=== PATIENT | female | born 1935 | race Caucasian/White ===

== ENCOUNTER 2020-02-26 15:18 | Observation (INO) | payer OTHER, BC ==
--- NOTE | 2020-02-26 15:21 | PDOC ---
History of Present Illness - General Chief Complaint: Head/Neck problem Stated Complaint: HIT HER HEAD ON a wall no loc - History of Present Illness Initial Comments: The pt is a 84F w/ a history of HTN and anxiety who presents for evaluation after a fall. The pt reports getting into an argument with her and then having an IBS flair. Afterwards the pt felt lightheaded for a short period. She then 'sat' on the floor but hit her head on the corner of the wall. She denies LOC. She denies chest pain before/after the event. The pt reports L parietal pain that is constant, achy, non-radiating, and not exacerbated or alleviated by anything she can identify. 02/26/20 15:48 Past History - Medical History Allergies/Adverse Reactions: Allergies Allergy/AdvReac Type Severity Reaction Status Date / Time Sulfa (Sulfonamide Allergy Intermediate Rash Verified 02/26/20 15:22 Antibiotics) garlic AdvReac Intermediate Nausea Verified 02/26/20 15:21 Home Medications: Ambulatory Orders Alprazolam [Xanax] 0.25 mg PO PRN 02/10/15 Losartan 50Mg/Hctz 12.5MG [Hyzaar -] 1 tab PO DAILY 02/10/15 Verapamil HCl [Verapamil ER] 240 mg PO DAILY 02/10/15 Amlodipine Besylate 5 mg PO DAILY 02/26/20 Simvastatin 10 mg PO DAILY 02/26/20 Verapamil HCl [Verapamil ER] 120 mg PO HS 02/26/20 - Psycho-Social/Smoking History Smoking History: Never smoked Review of Systems - Review of Systems Able to Perform ROS?: Yes Comments:: GENERAL/CONSTITUTIONAL: No fever or chills. No weakness HEAD, EYES, EARS, NOSE AND THROAT: No change in vision. No change in hearing. No sore throat CARDIOVASCULAR: No chest pain or shortness of breath RESPIRATORY: Denies cough, hemoptysis GASTROINTESTINAL: No nausea, vomiting, diarrhea or constipation GENITOURINARY: No dysuria, frequency, or change in urination MUSCULOSKELETAL: No joint or muscle swelling or pain. No back pain SKIN: No rash NEUROLOGIC: No headache, vertigo, loss of consciousness, or change in strength/sensation ENDOCRINE: No increased thirst. No abnormal weight change HEMATOLOGIC/LYMPHATIC: No anemia, easy bleeding, or history of blood clots ALLERGIC/IMMUNOLOGIC: No hives or skin allergy 02/26/20 15:21 Is the patient limited [place] proficient: No *Physical Exam - Vital Signs Initial Vital Signs Temp Pulse Resp BP Pulse Ox 97.7 F 86 16 130/70 98 02/26/20 15:20 02/26/20 15:20 02/26/20 15:20 02/26/20 15:20 02/26/20 15:20 02/26/20 16:56 - Physical Exam GENERAL: Awake, alert, and oriented to person/place/time, in no acute distress HEAD: 2cm linear parietal scalp laceration w/o active hemorrhage EYES: PERRLA, EOMI, sclera anicteric, conjunctiva clear ENT: Hearing grossly normal, nares patent, oropharynx clear without exudates. Moist mucosa LUNGS: No distress, speaks in full sentences, clear to auscultation bilaterally HEART: Regular rate and rhythm, normal S1 and S2, no murmurs appreciated, peripheral pulses normal and equal bilaterally ABDOMEN: Soft, nontender, normoactive bowel sounds. No guarding, no rebound EXTREMITIES: Normal inspection, Normal range of motion, no edema. No clubbing or cyanosis NEUROLOGICAL: Cranial nerves II through XII grossly intact. Normal speech, normal gait, no focal sensorimotor deficits SKIN: Warm, Dry 02/26/20 15:21 Procedures - Laceration/Wound Repair Left Posterior Parietal Wound Length: to 2.5 cm Wound Explored: clean Wound's Depth, Shape: superficial, linear Irrigated w/ Saline: Yes Anesthesia: 1% Lidocaine Amount of Anesthetic (ccs): 3 Wound Repaired With: [place] (2) Sterile Dressing Applied: Yes ED Treatment Course - LABORATORY CBC & Chemistry Diagram: 02/26/20 15:05 02/27/20 08:12 Medical Decision Making - Medical Decision Making The pt is a 84F w/ a history of HTN and anxiety who presents for evaluation after a fall likely 2/2 pre-syncope ED Course CMP, CBC, Trop I ECG CXR CT head Laceration repaired per procedure note CT head w/o acute pathology Trop I neg No anemia No leukocytosis 02/26/20 16:47 ECG w/ sinus rhythm w/ 1st degree AV block; WI 214; QTc 469; no axis deviation; on acute ischemic changes CXR w/o acute pathology Plan for admission for tele obs for pre-syncope Pt signed out to [facility] Admitting 02/26/20 18:59 Discharge - Discharge Information Problems reviewed: Yes Clinical Impression/Diagnosis: Pre-syncope Laceration of head Qualifiers: Encounter type: initial encounter Location of open wound of head: scalp Foreign body presence: without foreign body Qualified Code(s): S01.01XA - Laceration without foreign body of scalp, initial encounter Condition: Stable - Follow up/Referral - Patient Discharge Instructions - Post Discharge Activity
[2020-02-26 15:35] VITALS: BMI 17.7
--- NOTE | 2020-02-26 15:36 | PDOC ---
Attending Attestation - Resident Resident Name: Francisco J Paez - ED Attending Attestation I have performed the following: I have examined & evaluated the patient, The case was reviewed & discussed with the resident, I agree w/resident's findings & plan, Exceptions are as noted - HPI HPI: 02/26/20 15:33 84y F hx of htn, ibs, anxiety presents sp fall. Pt felt like having a BM, then felt lightheaded, alittle sweaty, and sat down, then she tried to lay down and struck herhead against a door jam. she denies true loc, her witnessed the episode and statee it looks like her legs gave out. The pt denie sany headache, double vision, speech difficulty focal numbness/tiomgling/weakness, sob, cp, palpitations, abd pain, back pain, f/c, coughng, leg swelling, diarhea, blood in the stool/melena. - Physicial Exam PE: 02/26/20 17:54 GENERAL: The patient is awake, alert, and fully oriented, Nontoxic - in no acute distress. HEAD: Normocephalic, 2cm laceration on parietal scalp without active bleedingm, no crepitus/stepoffs EYES: extraocular movements intact, sclera anicteric, conjunctiva clear. ENT: Normal voice, Moist mucous membranes. BACK: No focal bony tenderness in cervical/thoracic/lumbar spine. NECK: Normal range of motion, supple LUNGS: Breath sounds equal, clear to auscultation bilaterally. No wheezes, no rhonchi, no rales. HEART: Regular rate and rhythm, normal S1 and S2 without murmur, rub or gallop. ABDOMEN: Soft, nontender, No guarding, no rebound. No CVA tenderness EXTREMITIES: Normal range of motion, no edema. NEUROLOGICAL: No facial assymetry, Normal speech, PSYCH: Normal mood, normal affect. SKIN: Warm, Dry, normal turgor, - Medical Decision Making 02/26/20 17:55 Differential for the patient's presyncope includes but not limited to vasovagal episode, pulmonary embolism, subarachnoid hemorrhage, arrythmia, AAA/dissection. Based on the patient's lack of chest pain, shortness of breath, doubt pulmonary embolism. Lack of severe headache doubt subarachnoid hemorrhage. Lack of abdominal pain and pulsatile abdominal mass/neurologic symptoms doubt AAA/dissection. will check cbc to r/o anemia cmp to r/o electrolyte imbalance trop to r/o acs ekg to r/o arrhythmia cxr to r/o acute pulmonary disease laceration closed with [address] head negative for fx labs reveiwed with out signs of anemia, metabolic derangement ekg shwos 1st degree av block, no signs of arrhythmia Heart Score/ECG Review - ECG Impressions Comment:: 02/26/20 18:29 Twelve-lead EKG was performed and reviewed by me. There is normal sinus rhythm with a normal rate. rate of 75 The axis is normal. 1st degree av block abnromal r wave progression Discharge - Discharge Information Problems reviewed: Yes Clinical Impression/Diagnosis: Pre-syncope Laceration of head Qualifiers: Encounter type: initial encounter Location of open wound of head: scalp Foreign body presence: without foreign body Qualified Code(s): S01.01XA - Laceration without foreign body of scalp, initial encounter Condition: Stable Disposition: HOME - Follow up/Referral - Patient Discharge Instructions - Post Discharge Activity
[2020-02-26 16:17] LABS: BASO % 0.4 % (0-2.0); EOS % 0.5 % (0-4.5); HEMATOCRIT 35.7 % (32.4-45.2); HEMOGLOBIN 11.7 GM/dl (10.7-15.3); LYMPH % 8.4 % (8-40); MCH 29.5 pg (25.7-33.7); MCHC 32.7 g/dl (32.0-36.0); MEAN CELL VOLUME 90.3 fl (80-96); MEAN PLT VOLUME 7.2 fl (7.5-11.1); MONO % 5.2 % (3.8-10.2); NEUT % 85.5 % (42.8-82.8); PLATELET COUNT 203 K/MM3 (134-434); RBC 3.96 M/mm3 (3.60-5.2); RDW 12.1 % (11.6-15.6); WHITE BLOOD COUNT 10.5 K/mm3 (4.0-10.8)
[2020-02-26 16:53] LABS: ALBUMIN 4.5 g/dl (3.4-5.0); BILIRUBIN,TOTAL 0.4 mg/dl (0.2-1); CALCIUM 9.2 mg/dl (8.5-10); CREATININE 0.9 mg/dl (0.55-1.3); TOT PROT 7.2 g/dl (6.4-8.2)
--- NOTE | 2020-02-26 19:26 | HP ---
CHIEF COMPLAINT: Near syncope, s/p fall PCP: [facility] HISTORY OF PRESENT ILLNESS: This is a 84 y/o female with a PMHx of HTN, IBS, Anxiety. who presents to the ED s/p fall. Patient reports feeling like she needed to have a BM, then became lightheaded, diaphoretic. She reports sitting down, then she tried to lay down and struck her head against a door jam. She denies LOC. Per ED records: her witnessed the episode and stated it looks like her legs gave out. The patient denies headache, double vision, slurred speech, focal numbness/tingling/weakness. Denies fever, chills, cough, SOB, CP, palpitations, back pain, AP, diarrhea, constipation, melena, hematochezia, dysuria. She denies sick contacts or travel. ER course was notable for: (1) Head CT- no CT evidence of acute intracranial pathology (2) Chest Xray- there is old right rib trauma and old fx of right clavicle with AC separation. apical pleural thickening R>L. no infiltrate or failure (3) Troponin- 0.03 Recent Travel: None PAST MEDICAL HISTORY: See HPI PAST SURGICAL HISTORY: Unknown Social History: Smoking: Never Alcohol: Occasional Drugs: Denies Resides with spouse, independent Allergies Sulfa (Sulfonamide Antibiotics) Allergy (Intermediate, Verified 02/26/20 15:22) Rash garlic Adverse Reaction (Intermediate, Verified 02/26/20 15:21) Nausea HOME MEDICATIONS: Home Medications Medication Instructions Recorded Alprazolam [Xanax] 0.25 mg PO PRN 02/10/15 Losartan 50Mg/Hctz 12.5MG [Hyzaar 1 tab PO DAILY 02/10/15 -] Verapamil HCl [Verapamil ER] 240 mg PO DAILY 02/10/15 Amlodipine Besylate 5 mg PO DAILY 02/26/20 Simvastatin 10 mg PO DAILY 02/26/20 Verapamil HCl [Verapamil ER] 120 mg PO HS 02/26/20 REVIEW OF SYSTEMS CONSTITUTIONAL: diaphoresis Absent: fever, chills, generalized weakness, malaise, loss of appetite, weight change HEENT: Absent: rhinorrhea, nasal congestion, throat pain, throat swelling, difficulty swallowing, mouth swelling, ear pain, eye pain, visual changes CARDIOVASCULAR: near syncope, lightheadedness Absent: chest pain, palpitations, irregular heart rate, peripheral edema RESPIRATORY: Absent: cough, shortness of breath, dyspnea with exertion, orthopnea, wheezing, stridor, hemoptysis GASTROINTESTINAL: Absent: abdominal pain, abdominal distension, nausea, vomiting, diarrhea, constipation, melena, hematochezia GENITOURINARY: Absent: dysuria, frequency, urgency, hesitancy, hematuria, flank pain, genital pain MUSCULOSKELETAL: Absent: myalgia, arthralgia, joint swelling, back pain, neck pain SKIN: laceration to left side of scalp Absent: rash, itching, pallor HEMATOLOGIC/IMMUNOLOGIC: Absent: easy bleeding, easy bruising, lymphadenopathy, frequent infections ENDOCRINE: Absent: unexplained weight gain, unexplained weight loss, heat intolerance, cold intolerance NEUROLOGIC: dizziness, unsteady gait Absent: headache, focal weakness or paresthesias, seizure, mental status changes, bladder or bowel incontinence PSYCHIATRIC: anxiety Absent: depression, suicidal or homicidal ideation, hallucinations. PHYSICAL EXAMINATION Vital Signs - 24 hr 02/26/20 02/26/20 15:20 18:53 Temperature 97.7 F Pulse Rate 86 Pulse Rate [ 74 Right Radial] Respiratory 16 Rate Blood Pressure 130/70 Blood Pressure 132/68 [Left Arm] O2 Sat by Pulse 98 96 Oximetry (%) GENERAL: Awake, alert, and fully oriented, in no acute distress. HEAD: Normal with no signs of trauma. EYES: Pupils equal, round and reactive to light, extraocular movements intact, sclera anicteric, conjunctiva clear. No lid lag. EARS, NOSE, THROAT: Ears normal, nares patent, oropharynx clear without exudates. Moist mucous membranes. NECK: Normal range of motion, supple without lymphadenopathy, JVD, or masses. LUNGS: Breath sounds equal, clear to auscultation bilaterally. No wheezes, and no crackles. No accessory muscle use. HEART: Regular rate and rhythm, normal S1 and S2 without murmur, rub or gallop. ABDOMEN: Soft, nontender, not distended, normoactive bowel sounds, no guarding, no rebound, no masses. No hepatomegaly or splenomegaly. MUSCULOSKELETAL: Normal range of motion at all joints. No bony deformities or tenderness. No CVA tenderness. UPPER EXTREMITIES: 2+ pulses, warm, well-perfused. No cyanosis. No clubbing. No peripheral edema. LOWER EXTREMITIES: 2+ pulses, warm, well-perfused. No calf tenderness. No peripheral edema. NEUROLOGICAL: Antalgic gait. Cranial nerves II-XII intact. Normal speech. PSYCHIATRIC: Anxious, cooperative. Good eye contact. Appropriate mood and affect. SKIN: Brock to L- parietal scalp intact. Warm, dry, normal turgor, no rashes noted, normal capillary refill. Laboratory Results - last 24 hr 02/26/20 02/26/20 02/26/20 15:05 16:05 16:05 WBC 10.5 RBC 3.96 Hgb 11.7 Hct 35.7 MCV 90.3 MCH 29.5 MCHC 32.7 RDW 12.1 Plt Count 203 MPV 7.2 L Absolute Neuts (auto) 9.0 Neutrophils % 85.5 H Lymphocytes % 8.4 Monocytes % 5.2 Eosinophils % 0.5 Basophils % 0.4 Sodium 136 Potassium 4.0 Chloride 100 Carbon Dioxide 23 Anion Gap 13 BUN 23.0 H Creatinine 0.9 Est GFR (CKD-EPI)AfAm 68.53 Est GFR (CKD-EPI)NonAf 59.13 Random Glucose 122 H Calcium 9.2 Total Bilirubin 0.4 AST 21 ALT 17 Alkaline Phosphatase 71 D Troponin I < 0.03 Total Protein 7.2 Albumin 4.5 ASSESSMENT/PLAN: This is a 84 y/o female placed in Telemetry Observation for Near Syncope for further evaluation of their emergent condition. Plan: See Problem List FEN PO fluids as tolerated Replete lytes prn Low Na Diet DVT ppx OOB SCDs Consider AC if LOS > 48 hrs Dispo: Observation Family Medical History Family History: Unremarkable Problem List - Problem (1) Pre-syncope Assessment/Plan: Likely secondary to Vasovagal vs arrhythmia Continue cardiac monitoring Serial Enzymes neg x1, will trend EKG reviewed Carotid Doppler-pending Appreciate Cardiology consult Monitor CBC, CMP Fall Precautions Neurochecks Orthostatics Code(s): R55 - SYNCOPE AND COLLAPSE (2) HTN (hypertension) Assessment/Plan: stable Monitor BP Continue home medication Monitor renal function Code(s): I10 - ESSENTIAL (PRIMARY) HYPERTENSION Qualifiers: Hypertension type: essential hypertension Qualified Code(s): I10 - Essential (primary) hypertension (3) Laceration of head Assessment/Plan: stapled in ED Wound Care TD ordered Code(s): S01.91XA - LACERATION W/O FOREIGN BODY OF UNSP PART OF HEAD, INIT Qualifiers: Encounter type: initial encounter Location of open wound of head: scalp Foreign body presence: without foreign body Qualified Code(s): S01.01XA - Laceration without foreign body of scalp, initial encounter (4) Anxiety Assessment/Plan: Continue Xanax prn use judiciously secondary to near syncopal event Code(s): F41.9 - ANXIETY DISORDER, UNSPECIFIED (5) Encounter for screening laboratory testing for COVID-19 virus Assessment/Plan: Low Risk Covid PCR-pending Isolation Precautions Code(s): Z11.59 - ENCOUNTER FOR SCREENING FOR OTHER VIRAL DISEASES Visit type - Medication Review Med list reviewed for High Risk Meds patients 65 and older: Yes - Emergency Visit Emergency Visit: Yes ED Registration Date: 02/26/20 Care time: The patient presented to the Emergency Department on the above date and was hospitalized for further evaluation of their emergent condition. - New Patient This patient is new to me today: Yes Date on this admission: 02/26/20 - Critical Care Critical Care patient: No
[2020-02-26] MEDS ORDERED: ALPRAZolam 0.25 MG TABLET PO ONE (23:28)
[2020-02-26] MEDS ORDERED: ATORVASTATIN CA 10 MG TABLET (FP) PO SCH (23:30)
[2020-02-27] MEDS ORDERED: DIPHTH,PERTUSS(ACELL),TET 0.5 ML DISP.SYRIN IM ONE (08:00)
[2020-02-27 08:59] LABS: ALBUMIN 4.4 g/dl (3.4-5.0); BILIRUBIN,TOTAL 0.7 mg/dl (0.2-1); CALCIUM 9.6 mg/dl (8.5-10); CREATININE 0.6 mg/dl (0.55-1.3); MAGNESIUM 2.1 mg/dL (1.8-2.4); PHOSPHOROUS 3.1 mg/dl (2.5-4.9); POTASSIUM 3.9 mmol/L (3.5-5.1); TOT PROT 7.2 g/dl (6.4-8.2)
[2020-02-27 09:03] LABS: BASO % 0.7 % (0-2.0); EOS % 1.4 % (0-4.5); HEMATOCRIT 39.8 % (32.4-45.2); HEMOGLOBIN 12.7 GM/dl (10.7-15.3); LYMPH % 17.5 % (8-40); MCHC 31.8 g/dl (32.0-36.0); MEAN CELL VOLUME 91.4 fl (80-96); MEAN PLT VOLUME 7.8 fl (7.5-11.1); MONO % 7.4 % (3.8-10.2); PLATELET COUNT 222 K/MM3 (134-434); RBC 4.36 M/mm3 (3.60-5.2); RDW 11.7 % (11.6-15.6); WHITE BLOOD COUNT 5.4 K/mm3 (4.0-10.8)
[2020-02-27] MEDS ORDERED: VERAPAMIL HCL 120 MG E.R. TABLET PO SCH (10:00)
[2020-02-27] MEDS ORDERED: amLODIPine BESYLATE 5 MG TABLET (FP) PO SCH (10:00)
[2020-02-27 10:33] VITALS: BP 120/65; PULSE 84; TEMP 98.3
--- NOTE | 2020-02-27 10:46 | EKG ---
Test Reason : Blood Pressure : / mmHG Vent. Rate : 075 BPM Atrial Rate : 075 BPM P-R Int : 214 ms QRS Dur : 066 ms QT Int : 420 ms P-R-T Axes : 080 046 018 degrees QTc Int : 469 ms SINUS RHYTHM WITH 1ST DEGREE A-V BLOCK MINIMAL VOLTAGE CRITERIA FOR LVH, MAY BE NORMAL VARIANT SEPTAL INFARCT , AGE UNDETERMINED ABNORMAL ECG NO PREVIOUS ECGS AVAILABLE Confirmed by Caleb Ness ([id number]) on 02/27/2020 10:46:09 AM Referred By: Confirmed By:Caleb Ness
[2020-02-27] MEDS ORDERED: ALPRAZolam 0.25 MG TABLET PO ONE (11:30)
--- NOTE | 2020-02-27 13:33 | CON.CARD ---
Consult Consult Specialty:: Cardiology Referred by:: Hospitalist Medicine Reason for Consultation:: Near syncope post fall - History of Present Illness Chief Complaint: Near syncope History of Present Illness: This is a 84 y/o female with a PMHx of HTN, IBS, Anxiety presented to the ED s/p fall. Patient reports feeling like she needed to have a BM, with tenesmus then became lightheaded, diaphoretic w/o true syncope. She reports sitting down, then she tried to lay down and struck her head against a door jam. She denies LOC. Pe r ED records: her witnessed the episode and stated it looks like her legs gave out. The patient denies headache, double vision, slurred speech, focal numbness/tingling/weakness. Denies fever, chills, cough, SOB, CP, palpitations, back pain, AP, diarrhea, constipation, melena, hematochezia, dysuria. She denies sick contacts or travel. No events on telemetry, ruled out for [place] ER course was notable for: (1) Head CT- no CT evidence of acute intracranial pathology (2) Chest Xray- there is old right rib trauma and old fx of right clavicle with AC separation. apical pleural thickening R>L. no infiltrate or failure (3) Troponin- 0.03 - History Source History Provided By: Patient Limitations to Obtaining History: No Limitations - Alcohol/Substance Use Hx Alcohol Use: Yes - Smoking History Smoking history: Never smoked Have you smoked in the past 12 months: No If you are a former smoker, when did you quit?: 33 years ago Home Medications - Allergies Allergies/Adverse Reactions: Allergies Allergy/AdvReac Type Severity Reaction Status Date / Time Sulfa (Sulfonamide Allergy Intermediate Rash Verified 02/26/20 15:22 Antibiotics) garlic AdvReac Intermediate Nausea Verified 02/26/20 15:21 - Home Medications Home Medications: Ambulatory Orders Alprazolam [Xanax] 0.25 mg PO PRN 02/10/15 Losartan 50Mg/Hctz 12.5MG [Hyzaar -] 1 tab PO DAILY 02/10/15 Verapamil HCl [Verapamil ER] 240 mg PO DAILY 02/10/15 Amlodipine Besylate 5 mg PO DAILY 02/26/20 Simvastatin 10 mg PO DAILY 02/26/20 Verapamil HCl [Verapamil ER] 120 mg PO HS 02/26/20 Amlodipine Besylate [Norvasc -] 5 mg PO DAILY tablet 02/27/20 Atorvastatin Ca [Lipitor] 10 mg PO HS tablet 02/27/20 Verapamil HCl ER [Calan Sr -] 120 mg PO DAILY tablet.er 02/27/20 Review of Systems - Review of Systems Constitutional: reports: Diaphoresis Neurological: reports: Dizziness Vital Signs: Vital Signs Temperature 98.3 F 02/27/20 10:00 Pulse Rate 84 02/27/20 10:00 Respiratory Rate 18 02/27/20 10:00 Blood Pressure 120/65 02/27/20 10:00 O2 Sat by Pulse Oximetry (%) 98 02/27/20 10:00 Constitutional: Yes: No Distress, Calm Neck: Yes: Supple Respiratory: Yes: Regular, CTA Bilaterally Gastrointestinal: Yes: Normal Bowel Sounds, Soft Cardiovascular: Yes: Regular Rate and Rhythm JVD: No Carotid Bruit: No Heart Sounds: Yes: S1, S2 Murmur: Yes: Systolic Murmur, Grade 1 Edema: No - Other Data Labs, Other Data: CBC, BMP 02/27/20 08:12 02/27/20 08:12 Troponin, BNP 02/26/20 02/27/20 02/27/20 16:05 00:00 08:12 Troponin I < 0.03 < 0.02 < 0.03 Troponin, BNP 02/26/20 02/27/20 02/27/20 16:05 00:00 08:12 Troponin I < 0.03 < 0.02 < 0.03 NSR @ [address] 1[address] deg AVB min criteria LVH Ejection Fraction %: LVEF > or = 40 % Imaging - Results Chest X-ray: Report Reviewed (NAD) Cat Scan: Report Reviewed (HCT: NO acute changes) Problem List - Problems (1) Hyperlipidemia Code(s): E78.5 - HYPERLIPIDEMIA, UNSPECIFIED Qualifiers: Hyperlipidemia type: pure hypercholesterolemia Qualified Code(s): E78.00 - Pure hypercholesterolemia, unspecified; E78.0 - Pure hypercholesterolemia (2) Laceration of head Code(s): S01.91XA - LACERATION W/O FOREIGN BODY OF UNSP PART OF HEAD, INIT Qualifiers: Encounter type: initial encounter Location of open wound of head: scalp Foreign body presence: without foreign body Qualified Code(s): S01.01XA - Laceration without foreign body of scalp, initial encounter (3) Anxiety Code(s): F41.9 - ANXIETY DISORDER, UNSPECIFIED (4) HTN (hypertension) Code(s): I10 - ESSENTIAL (PRIMARY) HYPERTENSION Qualifiers: Hypertension type: essential hypertension Qualified Code(s): I10 - Essential (primary) hypertension (5) Pre-syncope Code(s): R55 - SYNCOPE AND COLLAPSE Assessment/Plan 1. Vasovagal near syncope with typical prodromal symptoms 2. HTN 3. Laceration of head post closure 4. Anxiety P:1. Ruled out got [place], no events on telemetry 2. Continue Hyzaar 50/12.5 qd, Norvasc 5 qd, Lipitor 10 qd 3. Wound care to head laceration 4. D/c with f/u with Dr. Drew Watkins at [facility] for outpatient stress and echo already scheduled 5. Thank you for consultative opportunity
--- NOTE | 2020-02-27 13:33 | DS ---
Physical Exam: SUBJECTIVE: Patient seen and examined. Offers no complaints. OBJECTIVE: Vital Signs Period Temp Pulse Resp BP Sys/Oneal Pulse Ox Last 24 Hr 97.4 F-98.3 F 71-97 16-18 111-142/65-77 94-98 PHYSICAL EXAM GENERAL: The patient is awake, alert, and fully oriented, in no acute distress. HEAD: 2 hoda in occipital scalp, clean and dry. EYES: PERRL, extraocular movements intact, sclera anicteric, conjunctiva clear. ENT: Ears normal, nares patent, oropharynx clear without exudates, moist mucous membranes. NECK: Trachea midline, full range of motion, supple. LUNGS: Breath sounds equal, clear to auscultation bilaterally, no wheezes, no crackles, no accessory muscle use. HEART: Regular rate and rhythm, S1, S2 without murmur, rub or gallop. ABDOMEN: Soft, nontender, nondistended, normoactive bowel sounds, no guarding, no rebound, no hepatosplenomegaly, no masses. EXTREMITIES: 2+ pulses, warm, well-perfused, no edema. NEUROLOGICAL: Cranial nerves II through XII grossly intact. Normal speech, gait not observed. PSYCH: Confrontational affect. SKIN: Warm, dry, normal turgor, no rashes or lesions noted. LABS Laboratory Results - last 24 hr 02/26/20 02/26/20 02/26/20 15:05 16:05 16:05 WBC 10.5 RBC 3.96 Hgb 11.7 Hct 35.7 MCV 90.3 MCH 29.5 MCHC 32.7 RDW 12.1 Plt Count 203 MPV 7.2 L Absolute Neuts (auto) 9.0 Neutrophils % 85.5 H Lymphocytes % 8.4 Monocytes % 5.2 Eosinophils % 0.5 Basophils % 0.4 Sodium 136 Potassium 4.0 Chloride 100 Carbon Dioxide 23 Anion Gap 13 BUN 23.0 H Creatinine 0.9 Est GFR (CKD-EPI)AfAm 68.53 Est GFR (CKD-EPI)NonAf 59.13 Random Glucose 122 H Calcium 9.2 Phosphorus Magnesium Total Bilirubin 0.4 AST 21 ALT 17 Alkaline Phosphatase 71 D Troponin I < 0.03 Total Protein 7.2 Albumin 4.5 Triglycerides Cholesterol Total LDL Cholesterol HDL Cholesterol Urine Color Urine Appearance Urine pH Urine Protein Urine Glucose (UA) Urine Ketones Urine Blood Urine Nitrite Urine Bilirubin Urine Urobilinogen Ur Leukocyte Esterase 02/26/20 02/27/20 02/27/20 22:10 00:00 08:12 WBC 5.4 RBC 4.36 Hgb 12.7 Hct 39.8 MCV 91.4 MCH 29.0 MCHC 31.8 L RDW 11.7 Plt Count 222 MPV 7.8 Absolute Neuts (auto) 4.0 Neutrophils % 73.0 Lymphocytes % 17.5 Monocytes % 7.4 Eosinophils % 1.4 Basophils % 0.7 Sodium Potassium Chloride Carbon Dioxide Anion Gap BUN Creatinine Est GFR (CKD-EPI)AfAm Est GFR (CKD-EPI)NonAf Random Glucose Calcium Phosphorus Magnesium Total Bilirubin AST ALT Alkaline Phosphatase Troponin I < 0.02 Total Protein Albumin Triglycerides Cholesterol Total LDL Cholesterol HDL Cholesterol Urine Color Yellow Urine Appearance Clear Urine pH 7.0 Urine Protein Negative Urine Glucose (UA) Negative Urine Ketones Negative Urine Blood Negative Urine Nitrite Negative Urine Bilirubin Negative Urine Urobilinogen 0.2 Ur Leukocyte Esterase Negative 02/27/20 02/27/20 08:12 08:12 WBC RBC Hgb Hct MCV MCH MCHC RDW Plt Count MPV Absolute Neuts (auto) Neutrophils % Lymphocytes % Monocytes % Eosinophils % Basophils % Sodium 140 Potassium 3.9 Chloride 103 Carbon Dioxide 27 Anion Gap 10 BUN 12.0 Creatinine 0.6 Est GFR (CKD-EPI)AfAm 97.69 Est GFR (CKD-EPI)NonAf 84.29 Random Glucose 98 Calcium 9.6 Phosphorus 3.1 Magnesium 2.1 Total Bilirubin 0.7 AST 19 ALT 17 Alkaline Phosphatase 74 Troponin I < 0.03 Total Protein 7.2 Albumin 4.4 Triglycerides 56 Cholesterol 193 Total LDL Cholesterol 91 HDL Cholesterol 91 H Urine Color Urine Appearance Urine pH Urine Protein Urine Glucose (UA) Urine Ketones Urine Blood Urine Nitrite Urine Bilirubin Urine Urobilinogen Ur Leukocyte Esterase HOSPITAL COURSE: This is a 84 y/o female with a PMHx of HTN, IBS, Anxiety. who presents to the ED s/p fall. Patient reports feeling like she needed to have a BM, then became lightheaded, diaphoretic. She reports sitting down, then she tried to lay down and struck her head against a door jam. She denies LOC. Per ED records: her witnessed the episode and stated it looks like her legs gave out. The patient denies headache, double vision, slurred speech, focal numbness/tingling/weakness. Denies fever, chills, cough, SOB, CP, palpitations, back pain, AP, diarrhea, constipation, melena, hematochezia, dysuria. She denies sick contacts or travel. Hospital course was notable for: EKG: Sinus rhythm with 1st degree AVB Head CT- no CT evidence of acute intracranial pathology Chest Xray- there is old right rib trauma and old fx of right clavicle with AC separation. apical pleural thickening R>L. no infiltrate or failure Troponins neg x 3 The patient was evaluated by cardiology consult - no additional inpatient interventions indicated. The patient states that she has an outpatient stress test and echo scheduled with Dr. Watkins at [facility]. Patient had carotid dopplers done here but there is a problem with uploading per radiology - instructed patient to follow up with Dr. Fu for results. Date of Admission:02/26/20 Date of Discharge: 02/27/20 Minutes to complete discharge: 35 Discharge Summary Problems reviewed: Yes Reason For Visit: PRE-SYNCOPE/ LACERATION OF HEAD Current Active Problems HTN (hypertension) (Acute) Laceration of head (Acute) Pre-syncope (Acute) Condition: Stable - Instructions Diet, Activity, Other Instructions: -Rest and stay well-hydrated -Continue all of your prescribed medications -Keep your hoda clean and dry - you can apply bacitracin ointment once daily -Return here next Wednesday to have your hoda taken out -Return to the ED sooner if you have chest pain, fainting episodes, redness or pain around your hoda, or any other concerning symptoms Referrals: Ronn Fu MD [Primary Care Provider] - 1 Week Disposition: HOME - Home Medications Comprehensive Discharge Medication List: Ambulatory Orders Alprazolam [Xanax] 0.25 mg PO PRN 02/10/15 Losartan 50Mg/Hctz 12.5MG [Hyzaar -] 1 tab PO DAILY 02/10/15 Verapamil HCl [Verapamil ER] 240 mg PO DAILY 02/10/15 Amlodipine Besylate 5 mg PO DAILY 02/26/20 Simvastatin 10 mg PO DAILY 02/26/20 Verapamil HCl [Verapamil ER] 120 mg PO HS 02/26/20 Problem List - Problems (1) HTN (hypertension) Code(s): I10 - ESSENTIAL (PRIMARY) HYPERTENSION (2) Laceration of head Code(s): S01.91XA - LACERATION W/O FOREIGN BODY OF UNSP PART OF HEAD, INIT Qualifiers: Encounter type: initial encounter Location of open wound of head: scalp Foreign body presence: without foreign body Qualified Code(s): S01.01XA - Laceration without foreign body of scalp, initial encounter (3) Pre-syncope Code(s): R55 - SYNCOPE AND COLLAPSE (4) Anxiety Code(s): F41.9 - ANXIETY DISORDER, UNSPECIFIED This patient is new to me today: Yes Date on this admission: 02/27/20 Emergency Visit: Yes ED Registration Date: 02/26/20 Care time: The patient presented to the Emergency Department on the above date and was hospitalized for further evaluation of their emergent condition. Critical Care patient: No - Discharge Referral Referred to [facility] Med P.C.: No
== END 2020-02-27 15:05 | disposition home or self-care (01) ==
LOC: FER 15:18 → FM/S 18:17
PROVIDERS: ADMIT Internal Medicine; ATTEND Registered Nurse Emergency
PROC: 0HQ0XZZ Repair Scalp Skin, External Approach (ICD-10-PCS; principal; 2020-02-26)
DX: R55 Syncope and collapse (principal); S01.01XA Laceration without foreign body of scalp, initial encounter; I10 Essential (primary) hypertension; F41.9 Anxiety disorder, unspecified; Z88.2 Allergy status to sulfonamides; Z91.018 Allergy to other foods; K58.9 Irritable bowel syndrome, unspecified; W18.39XA Other fall on same level, initial encounter; Y93.89 Activity, other specified; Y92.008 Other place in unspecified non-institutional (private) residence as the place of occurrence of the external cause
CPT/HCPCS: 12001-25; 36415; 70450-TC; 71045-TC-FY; 80053; 80061; 81003; 83735; 84100; 84443; 84484; 85025; 87086; 93005; 93880-TC; 99285-25; G0378; U0003

== ENCOUNTER 2020-04-22 08:09 | Emergency (ER) | payer OTHER, BC ==
[2020-04-22 08:21] VITALS: BP 156/70; PULSE 67; BMI 17.4
--- NOTE | 2020-04-22 08:37 | PDOC ---
History of Present Illness - General Chief Complaint: Blood Pressure Problem Stated Complaint: BP PROBLEM Time Seen by Provider: 04/22/20 08:50 History Source: Patient Exam Limitations: No Limitations - History of Present Illness Initial Comments: 04/22/20 09:01 Patient is a 85 y.o. F PMHx HTN, IBS, HLD and anxiety presenting due to elevated blood pressure. Patient states that she took her BP reading last night and it was 212/160's, she then took it this morning which was 160's/110's . Patient denies chest pain, SOB, blurry/double vision, back pain, new onset headaches or new onset abdominal pain. Patient states she is compliant with her home BP medications of verapamil 240mg AM, 120mg PM and 100mg losartan Daily. PCP: Dr. Fu PMHx: HTN, IBS, HLD, anxiety Meds: In Chart Allergies: NKDA 04/22/20 09:07 04/22/20 09:21 Is this a multiple visit Asthma Patient?: No Timing/Duration: 24 hours Severity: mild Aspirin Received prior to arrival: Yes: no aspirin today Past History - Travel History Traveled outside of the country in the last 30 days: No Close contact w/someone who was outside of country & ill: No - Medical History Allergies/Adverse Reactions: Allergies Allergy/AdvReac Type Severity Reaction Status Date / Time Sulfa (Sulfonamide Allergy Intermediate Rash Verified 04/22/20 08:15 Antibiotics) garlic AdvReac Intermediate Nausea Verified 04/22/20 08:15 Home Medications: Ambulatory Orders Alprazolam [Xanax] 0.25 mg PO PRN 02/10/15 Losartan 50Mg/Hctz 12.5MG [Hyzaar -] 1 tab PO DAILY 02/10/15 Verapamil HCl [Verapamil ER] 240 mg PO DAILY 02/10/15 Amlodipine Besylate 5 mg PO DAILY 02/26/20 Simvastatin 10 mg PO DAILY 02/26/20 Verapamil HCl [Verapamil ER] 120 mg PO HS 02/26/20 Amlodipine Besylate [Norvasc -] 5 mg PO DAILY tablet 02/27/20 Atorvastatin Ca [Lipitor] 10 mg PO HS tablet 02/27/20 Verapamil HCl ER [Calan Sr -] 120 mg PO DAILY tablet.er 02/27/20 COPD: No GI Disorders: Yes (ibs) HTN: Yes - Surgical History Appendectomy: Yes - Immunization History Immunization Up to Date: No - Psycho-Social/Smoking History Smoking History: Never smoked Have you smoked in the past 12 months: No If you are a former smoker, when did you quit?: 33 years ago - Substance Abuse Hx (Audit-C & DAST Scrn) How often the patient has a drink containing alcohol: Never Score: In Men: 4 or > Positive; In Women: 3 or > Positive: 0 Screen Result (Pos requires Nsg. Audit-10AR): Negative In the last yr the pt used illegal drug/Rx for NonMed reason: No Score: Yes response is considered Positive: 0 Screen Result (Positive result requires Nsg. DAST-10): Negative Review of Systems - Review of Systems Able to Perform ROS?: Yes Is the patient limited Vietnamese proficient: No Constitutional: No: Chills, Fever HEENTM: No: Blurred Vision, Double Vision Respiratory: No: Cough, Shortness of Breath Cardiac (ROS): No: Chest Pain, Lightheadedness ABD/GI: No: Constipated, Diarrhea, Nausea, Vomiting : No: Burning, Dysuria Musculoskeletal: No: Muscle Pain, Muscle Weakness Integumentary: No: Dryness, Erythema Neurological: Yes: Headache. No: Numbness, Dizziness Hematologic/Lymphatic: No: Anemia, Easy Bleeding *Physical Exam - Vital Signs Last Vital Signs Temp Pulse Resp BP Pulse Ox 67 18 156/70 100 04/22/20 08:15 04/22/20 08:15 04/22/20 08:15 04/22/20 08:15 - Physical Exam General Appearance: Yes: Nourished, Appropriately Dressed. No: Apparent Distress Respiratory/Chest: positive: Lungs Clear, Normal Breath Sounds. negative: Chest Tender, Respiratory Distress, Accessory Muscle Use, Crackles, Rales, Stridor, Wheezing Cardiovascular: positive: Regular Rhythm, Regular Rate. negative: JVD, Murmur Gastrointestinal/Abdominal: positive: Normal Bowel Sounds, Tender (RLQ), Flat, Soft. negative: Organomegaly, Pulsatile Mass, Distended, Guarding, Rebound, Hepatomegaly, Spleenomegaly Musculoskeletal: positive: Normal Inspection. negative: CVA Tenderness Extremity: positive: Normal Inspection. negative: Tender, Calf Tenderness Integumentary: positive: Normal Color, Dry, Warm Neurologic: positive: Fully Oriented, Alert, Normal Mood/Affect, Normal Response Medical Decision Making - Medical Decision Making 04/22/20 09:12 Patient is a 85 y.o. F PMHx HTN, IBS and anxiety presenting due to elevated blood pressure. DDx: Asymptomatic HTN - BP in ED 156/70, pulse 67, RR 18 - Advised to continue home meds Dispo: D/C home 04/22/20 09:14 Discharge - Discharge Information Problems reviewed: Yes Clinical Impression/Diagnosis: HTN (hypertension) Qualifiers: Hypertension type: unspecified Qualified Code(s): I10 - Essential (primary) hypertension Condition: Good - Admission No - Follow up/Referral Referrals: Ronn Fu MD [Primary Care Provider] - - Patient Discharge Instructions Patient Printed Discharge Instructions: DI for High Blood Pressure, How to Monitor Your Blood Pressure at Home Additional Instructions: You were seen in the emergency department for elevated blood pressure. This can be caused by not taking medication or high salt diet. As such you were monitored for hypertension. You were not given any medications in the emergency department. Please follow up with your primary care physician regarding your visit to the emergency department. If you experience profound headache, blurry/double vision, chest pain, shortness of breath, abdominal pain please return to the emergency department or call 911. - Post Discharge Activity
--- OUTSIDE RECORDS SUMMARY | 2020-04-22 09:00 | XMS ---
:1935 Author Organization [facility] Team Providers Name Role Phone Ronn Fu Unavailable Fader, M Unavailable Fader, M Unavailable Fader, M Unavailable Fader, M Unavailable Fader, M Unavailable Fader, M Unavailable Fader, M Unavailable Fader, M Unavailable Fader, M Unavailable Fader, M Unavailable Fader, M Unavailable Fader, M Unavailable Fader, M Unavailable Re-disclosure Warning The records that you are about to access may contain information from federally- assisted alcohol or drug abuse programs. If such information is present, then the following federally mandated warning applies: This information has been disclosed to you from records protected by federal confidentiality rules (42 CFR part 2). The federal rules prohibit you from making any further disclosure of this information unless further disclosure is expressly permitted by the written consent of the person to whom it pertains or as otherwise permitted by 42 CFR part 2. A general authorization for the release of medical or other information is NOT sufficient for this purpose. The Federal rules restrict any use of the information to criminally investigate or prosecute any alcohol or drug abuse patient.The records that you are about to access may contain highly sensitive health information, the redisclosure of which is protected by Article 27-F of the [facility] Public Health law. If you continue you may haveaccess to information: Regarding HIV / AIDS; Provided by facilities licensed or operated by the [facility] Office of Mental Health; or Provided by the [facility] Office for People With Developmental Disabilities. If such information is present, then the following [facility] mandated warning applies: This information has been disclosed to you from confidential records which are protected by state law. State law prohibits you from making any further disclosure of this information without the specific written consent of the person to whom it pertains, or as otherwise permitted by law. Any unauthorized further disclosure in violation of state law may result in a fine or half-way sentence or both. A general authorization for the release of medical or other information is NOT sufficient authorization for further disclosure. Allergies and Adverse Reactions Type Description Substance Reaction Status Data Source(s ) Drug allergy SULFA DRUG Sulfur Active MEDGEN ([facility], ) Food allergy GARLIC Synonym(s): GARLIC Active MEDG EN ([facility] EXTRACT; ALLIUM SATIVUM; [facility], ) ALLIUM PEKINENSE BULB; ALLII BULBUS; GARLIC POWDER; SPICES, GARLIC POWDER; ALLIUM SATIVUM BULB [WHO-DD]; AE-GARLIC; SERPENT GARLIC; DASUAN; ALLIUM CONTROVERSUM BULB; GARLIC [MART.]; GARLIC BULB [MART.]; ALLIUM SATIVUM OPHIOSCORODON; GARLIC,RAW; ALLIUM SATIVUM BULB EXTRACT; ALLII SATIVI BULBUS [CP]; ALLIUM OPHIOSCORODON BULB; PORRUM SATIVUM BULB; GARLIC BULB; ALLERGENIC EXTRACT- GALIC ALLIUM SATIVUM; PORRUM OPHIOSCORODON BULB; ALLIUM SATIVUM [HPUS]; ALLIUM SATIVUM BULB POWDER [WHO-DD]; FOOD - PLANT SOURCE, GARLIC ALLIUM SATIVUM; ALLIUM SATIVUM (GARLIC) BULB POWDER; ALLII SATIVI BULBUS; ALLIUM SATIVUM (GARLIC) BULB POWDER [INCI]; GARLIC ALLERGENIC EXTRACT; ALLIUM SATIVUM BULB; ALLIUM LONGICUSPIS BULB; GARLIC, RAW; ALLIUM SATIVUM BULB EXTRACT [WHO-DD]; ALLIUM ARENARIUM BULB; ALLIUM SATIVUM (GARLIC) BULB EXTRACT; ALLIUM SATIVUM (GARLIC) BULB EXTRACT [INCI]; GARLIC PREPARATION; ALLIUM SATIVUM BULB POWDER; ALLIUM SATIVUM [WHO-DD] Drug allergy SULFA DRUG Sulfur Active MEDGEN ([facility], ) Food allergy GARLIC Synonym(s): GARLIC Active MEDG EN ([facility] EXTRACT; ALLIUM SATIVUM; [facility], ) ALLIUM PEKINENSE BULB; ALLII BULBUS; GARLIC POWDER; SPICES, GARLIC POWDER; ALLIUM SATIVUM BULB [WHO-DD]; AE-GARLIC; SERPENT GARLIC; DASUAN; ALLIUM CONTROVERSUM BULB; GARLIC [MART.]; GARLIC BULB [MART.]; ALLIUM SATIVUM OPHIOSCORODON; GARLIC,RAW; ALLIUM SATIVUM BULB EXTRACT; ALLII SATIVI BULBUS [CP]; ALLIUM OPHIOSCORODON BULB; PORRUM SATIVUM BULB; GARLIC BULB; ALLERGENIC EXTRACT- GALIC ALLIUM SATIVUM; PORRUM OPHIOSCORODON BULB; ALLIUM SATIVUM [HPUS]; ALLIUM SATIVUM BULB POWDER [WHO-DD]; FOOD - PLANT SOURCE, GARLIC ALLIUM SATIVUM; ALLIUM SATIVUM (GARLIC) BULB POWDER; ALLII SATIVI BULBUS; ALLIUM SATIVUM (GARLIC) BULB POWDER [INCI]; GARLIC ALLERGENIC EXTRACT; ALLIUM SATIVUM BULB; ALLIUM LONGICUSPIS BULB; GARLIC, RAW; ALLIUM SATIVUM BULB EXTRACT [WHO-DD]; ALLIUM ARENARIUM BULB; ALLIUM SATIVUM (GARLIC) BULB EXTRACT; ALLIUM SATIVUM (GARLIC) BULB EXTRACT [INCI]; GARLIC PREPARATION; ALLIUM SATIVUM BULB POWDER; ALLIUM SATIVUM [WHO-DD] Drug allergy SULFA DRUG Sulfur Active MEDGEN ([facility], ) Food allergy GARLIC Synonym(s): GARLIC Active MEDG EN ([facility] EXTRACT; ALLIUM SATIVUM; [facility], ) ALLIUM PEKINENSE BULB; ALLII BULBUS; GARLIC POWDER; SPICES, GARLIC POWDER; ALLIUM SATIVUM BULB [WHO-DD]; AE-GARLIC; SERPENT GARLIC; DASUAN; ALLIUM CONTROVERSUM BULB; GARLIC [MART.]; GARLIC BULB [MART.]; ALLIUM SATIVUM OPHIOSCORODON; GARLIC,RAW; ALLIUM SATIVUM BULB EXTRACT; ALLII SATIVI BULBUS [CP]; ALLIUM OPHIOSCORODON BULB; PORRUM SATIVUM BULB; GARLIC BULB; ALLERGENIC EXTRACT- GALIC ALLIUM SATIVUM; PORRUM OPHIOSCORODON BULB; ALLIUM SATIVUM [HPUS]; ALLIUM SATIVUM BULB POWDER [WHO-DD]; FOOD - PLANT SOURCE, GARLIC ALLIUM SATIVUM; ALLIUM SATIVUM (GARLIC) BULB POWDER; ALLII SATIVI BULBUS; ALLIUM SATIVUM (GARLIC) BULB POWDER [INCI]; GARLIC ALLERGENIC EXTRACT; ALLIUM SATIVUM BULB; ALLIUM LONGICUSPIS BULB; GARLIC, RAW; ALLIUM SATIVUM BULB EXTRACT [WHO-DD]; ALLIUM ARENARIUM BULB; ALLIUM SATIVUM (GARLIC) BULB EXTRACT; ALLIUM SATIVUM (GARLIC) BULB EXTRACT [INCI]; GARLIC PREPARATION; ALLIUM SATIVUM BULB POWDER; ALLIUM SATIVUM [WHO-DD] Drug allergy SULFA DRUG Sulfur Active MEDGEN ([facility], ) Food allergy GARLIC Synonym(s): GARLIC Active MEDG EN ([facility] EXTRACT; ALLIUM SATIVUM; [facility], ) ALLIUM PEKINENSE BULB; ALLII BULBUS; GARLIC POWDER; SPICES, GARLIC POWDER; ALLIUM SATIVUM BULB [WHO-DD]; AE-GARLIC; SERPENT GARLIC; DASUAN; ALLIUM CONTROVERSUM BULB; GARLIC [MART.]; GARLIC BULB [MART.]; ALLIUM SATIVUM OPHIOSCORODON; GARLIC,RAW; ALLIUM SATIVUM BULB EXTRACT; ALLII SATIVI BULBUS [CP]; ALLIUM OPHIOSCORODON BULB; PORRUM SATIVUM BULB; GARLIC BULB; ALLERGENIC EXTRACT- GALIC ALLIUM SATIVUM; PORRUM OPHIOSCORODON BULB; ALLIUM SATIVUM [HPUS]; ALLIUM SATIVUM BULB POWDER [WHO-DD]; FOOD - PLANT SOURCE, GARLIC ALLIUM SATIVUM; ALLIUM SATIVUM (GARLIC) BULB POWDER; ALLII SATIVI BULBUS; ALLIUM SATIVUM (GARLIC) BULB POWDER [INCI]; GARLIC ALLERGENIC EXTRACT; ALLIUM SATIVUM BULB; ALLIUM LONGICUSPIS BULB; GARLIC, RAW; ALLIUM SATIVUM BULB EXTRACT [WHO-DD]; ALLIUM ARENARIUM BULB; ALLIUM SATIVUM (GARLIC) BULB EXTRACT; ALLIUM SATIVUM (GARLIC) BULB EXTRACT [INCI]; GARLIC PREPARATION; ALLIUM SATIVUM BULB POWDER; ALLIUM SATIVUM [WHO-DD] Drug allergy SULFA DRUG Sulfur Active MEDGEN ([facility], ) Food allergy GARLIC Synonym(s): GARLIC Active MEDG EN ([facility] EXTRACT; ALLIUM SATIVUM; [facility], ) ALLIUM PEKINENSE BULB; ALLII BULBUS; GARLIC POWDER; SPICES, GARLIC POWDER; ALLIUM SATIVUM BULB [WHO-DD]; AE-GARLIC; SERPENT GARLIC; DASUAN; ALLIUM CONTROVERSUM BULB; GARLIC [MART.]; GARLIC BULB [MART.]; ALLIUM SATIVUM OPHIOSCORODON; GARLIC,RAW; ALLIUM SATIVUM BULB EXTRACT; ALLII SATIVI BULBUS [CP]; ALLIUM OPHIOSCORODON BULB; PORRUM SATIVUM BULB; GARLIC BULB; ALLERGENIC EXTRACT- GALIC ALLIUM SATIVUM; PORRUM OPHIOSCORODON BULB; ALLIUM SATIVUM [HPUS]; ALLIUM SATIVUM BULB POWDER [WHO-DD]; FOOD - PLANT SOURCE, GARLIC ALLIUM SATIVUM; ALLIUM SATIVUM (GARLIC) BULB POWDER; ALLII SATIVI BULBUS; ALLIUM SATIVUM (GARLIC) BULB POWDER [INCI]; GARLIC ALLERGENIC EXTRACT; ALLIUM SATIVUM BULB; ALLIUM LONGICUSPIS BULB; GARLIC, RAW; ALLIUM SATIVUM BULB EXTRACT [WHO-DD]; ALLIUM ARENARIUM BULB; ALLIUM SATIVUM (GARLIC) BULB EXTRACT; ALLIUM SATIVUM (GARLIC) BULB EXTRACT [INCI]; GARLIC PREPARATION; ALLIUM SATIVUM BULB POWDER; ALLIUM SATIVUM [WHO-DD] Food allergy GARLIC Synonym(s): GARLIC Active MEDG EN ([facility] EXTRACT; ALLIUM SATIVUM; [facility], ) ALLIUM PEKINENSE BULB; ALLII BULBUS; GARLIC POWDER; SPICES, GARLIC POWDER; ALLIUM SATIVUM BULB [WHO-DD]; AE-GARLIC; SERPENT GARLIC; DASUAN; ALLIUM CONTROVERSUM BULB; GARLIC [MART.]; GARLIC BULB [MART.]; ALLIUM SATIVUM OPHIOSCORODON; GARLIC,RAW; ALLIUM SATIVUM BULB EXTRACT; ALLII SATIVI BULBUS [CP]; ALLIUM OPHIOSCORODON BULB; PORRUM SATIVUM BULB; GARLIC BULB; ALLERGENIC EXTRACT- GALIC ALLIUM SATIVUM; PORRUM OPHIOSCORODON BULB; ALLIUM SATIVUM [HPUS]; ALLIUM SATIVUM BULB POWDER [WHO-DD]; FOOD - PLANT SOURCE, GARLIC ALLIUM SATIVUM; ALLIUM SATIVUM (GARLIC) BULB POWDER; ALLII SATIVI BULBUS; ALLIUM SATIVUM (GARLIC) BULB POWDER [INCI]; GARLIC ALLERGENIC EXTRACT; ALLIUM SATIVUM BULB; ALLIUM LONGICUSPIS BULB; GARLIC, RAW; ALLIUM SATIVUM BULB EXTRACT [WHO-DD]; ALLIUM ARENARIUM BULB; ALLIUM SATIVUM (GARLIC) BULB EXTRACT; ALLIUM SATIVUM (GARLIC) BULB EXTRACT [INCI]; GARLIC PREPARATION; ALLIUM SATIVUM BULB POWDER; ALLIUM SATIVUM [WHO-DD] Food allergy GARLIC Synonym(s): GARLIC Active MEDG EN ([facility] EXTRACT; ALLIUM SATIVUM; [facility], ) ALLIUM PEKINENSE BULB; ALLII BULBUS; GARLIC POWDER; SPICES, GARLIC POWDER; ALLIUM SATIVUM BULB [WHO-DD]; AE-GARLIC; SERPENT GARLIC; DASUAN; ALLIUM CONTROVERSUM BULB; GARLIC [MART.]; GARLIC BULB [MART.]; ALLIUM SATIVUM OPHIOSCORODON; GARLIC,RAW; ALLIUM SATIVUM BULB EXTRACT; ALLII SATIVI BULBUS [CP]; ALLIUM OPHIOSCORODON BULB; PORRUM SATIVUM BULB; GARLIC BULB; ALLERGENIC EXTRACT- GALIC ALLIUM SATIVUM; PORRUM OPHIOSCORODON BULB; ALLIUM SATIVUM [HPUS]; ALLIUM SATIVUM BULB POWDER [WHO-DD]; FOOD - PLANT SOURCE, GARLIC ALLIUM SATIVUM; ALLIUM SATIVUM (GARLIC) BULB POWDER; ALLII SATIVI BULBUS; ALLIUM SATIVUM (GARLIC) BULB POWDER [INCI]; GARLIC ALLERGENIC EXTRACT; ALLIUM SATIVUM BULB; ALLIUM LONGICUSPIS BULB; GARLIC, RAW; ALLIUM SATIVUM BULB EXTRACT [WHO-DD]; ALLIUM ARENARIUM BULB; ALLIUM SATIVUM (GARLIC) BULB EXTRACT; ALLIUM SATIVUM (GARLIC) BULB EXTRACT [INCI]; GARLIC PREPARATION; ALLIUM SATIVUM BULB POWDER; ALLIUM SATIVUM [WHO-DD] Encounters Encounter Providers Location Date Indications Data Source(s ) Attender: Ronn 04/18/2020 MEDGEN ( [facility] 12:00:00 AM [facility]) Office Attender: Ronn Fu 04/18/2020 12:00:00 AM E DT MEDGEN ([facility]) Office Attender: Ronn Fu 04/18/2020 12:00:00 AM E DT MEDGEN ([facility]) Office Attender: Ronn Fu 04/18/2020 12:00:00 AM E DT MEDGEN ([facility]) Office Attender: Ronn Fu 04/18/2020 12:00:00 AM E DT MEDGEN ([facility]) Office Attender: Ronn Fu 04/02/2020 12:00:00 AM E DT MEDGEN ([facility]) Office Attender: Ronn Fu 04/02/2020 12:00:00 AM E DT MEDGEN ([facility]) Office Attender: Ronn Fu 04/02/2020 12:00:00 AM E DT MEDGEN ([facility]) Office Attender: Ronn Fu 04/02/2020 12:00:00 AM E DT MEDGEN ([facility]) Office Attender: Ronn Fu 04/02/2020 12:00:00 AM E DT MEDGEN ([facility]) Office Attender: Ronn Fu 03/14/2020 12:00:00 AM E DT MEDGEN ([facility]) Office Attender: Ronn Fu 03/14/2020 12:00:00 AM E DT MEDGEN ([facility]) Office Attender: Ronn Fu 03/14/2020 12:00:00 AM E DT MEDGEN ([facility]) Office Attender: Ronn Fu 03/14/2020 12:00:00 AM E DT MEDGEN ([facility]) Office Attender: Ronn Fu 03/14/2020 12:00:00 AM E DT MEDGEN ([facility]) Office Attender: Ronn Fu 03/05/2020 12:00:00 AM E DT MEDGEN ([facility]) Office Attender: Ronn Fu 03/01/2020 12:00:00 AM E DT MEDGEN ([facility]) Office Attender: Ronn Fu 03/01/2020 12:00:00 AM E DT MEDGEN ([facility]) Office Attender: Ronn Fu 03/01/2020 12:00:00 AM E DT MEDGEN ([facility]) Office Attender: Ronn Fu 03/01/2020 12:00:00 AM E DT MEDGEN ([facility]) Office Attender: Ronn Fu 03/01/2020 12:00:00 AM E DT MEDGEN ([facility]) Office Attender: Ronn Fu 03/01/2020 12:00:00 AM E DT MEDGEN ([facility]) Office Attender: Ronn Fu 03/01/2020 12:00:00 AM E DT MEDGEN ([facility]) Office Attender: Ronn Fu 02/09/2020 12:00:00 AM E DT MEDGEN ([facility]) Office Attender: Ronn Fu 02/09/2020 12:00:00 AM E DT MEDGEN ([facility]) Office Attender: Ronn Fu 02/09/2020 12:00:00 AM E DT MEDGEN ([facility]) Office Attender: Ronn Fu 02/09/2020 12:00:00 AM E DT MEDGEN ([facility]) Office Attender: Ronn Fu 02/09/2020 12:00:00 AM E DT MEDGEN ([facility]) Office Attender: Ronn Fu 01/09/2020 12:00:00 AM E DT MEDGEN ([facility]) Office Attender: Ronn Fu 01/09/2020 12:00:00 AM E DT MEDGEN ([facility]) Office Attender: Ronn Fu 01/09/2020 12:00:00 AM E DT MEDGEN ([facility]) Office Attender: Ronn Fu 01/09/2020 12:00:00 AM E DT MEDGEN ([facility]) Office Attender: Ronn Fu 01/09/2020 12:00:00 AM E DT MEDGEN ([facility]) Office Attender: Ronn Fu 01/09/2020 12:00:00 AM E DT MEDGEN ([facility]) Office Attender: Ronn Fu 01/09/2020 12:00:00 AM E DT MEDGEN ([facility]) Office Immunizations Vaccine Date Status Description Data Source(s) Tdap 03/01/2020 12:00:00 AM completed MEDGE N ([facility]) EDT Tdap 03/01/2020 12:00:00 AM completed MEDGE N ([facility]) EDT Tdap 03/01/2020 12:00:00 AM completed MEDGE N ([facility]) EDT Tdap 03/01/2020 12:00:00 AM completed [facility] [place]ap 03/01/2020 12:00:00 AM completed [facility] [place] [place] Medications Medication Brand Start Product Dose Route Administrative Pharmacy ezequiel Indications Reaction Description Data Name Date Form Instructions Instructions Source(s) Losartan LOSART 04/18/ TABLET 30 complet LOSARTA N MEDGEN (St Potassium AN:979 2019 ed [facility] 100 MG Oral 480 12:00: Medica l, Tablet 00 AM PC) LOSARTAN:97 EDT 9480 Verapamil VERAPA 04/18/ TABLET, 60 complet VERAP BAILEY MEDGEN ( hydrochlori MIL 2019 EXTENDED ed HYDROCHLO RID [facility] de 240 MG HYDROC 12:00: RELEASE E SR Med ical, Extended HLORID 00 AM PC) Release E EDT Oral Tablet SR:897 VERAPAMIL 649 HYDROCHLORI DE [id number] Amlodipine AMLODI 04/02/ TABLET 30 complet AMLOD IPINE MEDGEN (St 2.5 MG Oral PINE 2019 ed BESYLATE [facility] Tablet BESYLA 12:00: Medical, AMLODIPINE TE:308 00 AM PC) BESYLATE:30 136 EDT 8136 Losartan LOSART 02/08/ TABLET 180 complet LOSARTA N MEDGEN ( Potassium AN 2019 ed POTASSIUM [facility] 50 MG Oral POTASS 12:00: Medic al, Tablet IUM:97 00 AM PC) LOSARTAN 9492 EDT POTASSIUM:9 61299 Verapamil VERAPA 17/ TABLET 90 complet VERAPA MIL MEDGEN (St hydrochlori MIL:89 2019 ed [facility] de 120 MG 7666 12:00: Medical, Oral Tablet 00 AM PC) VERAPAMIL:8 EDT 13986 Verapamil VERAPA 17/ TABLET 90 complet VERAPA MIL MEDGEN (St hydrochlori MIL:89 2019 ed [facility] de 120 MG 7666 12:00: Medical, Oral Tablet 00 AM PC) VERAPAMIL:8 EDT 23405 Verapamil VERAPA 17/ TABLET 90 complet VERAPA MIL MEDGEN (St hydrochlori MIL:89 2019 ed [facility] de 120 MG 7666 12:00: Medical, Oral Tablet 00 AM PC) VERAPAMIL:8 EDT 85983 Losartan LOSART 02/08/ TABLET 180 complet LOSARTA N MEDGEN ( Potassium AN 2020 ed POTASSIUM [facility] 50 MG Oral POTASS 12:00: Medic al, Tablet IUM:97 00 AM PC) LOSARTAN 9492 EDT POTASSIUM:9 28421 Losartan LOSART 17/ TABLET 180 complet LOSARTA N MEDGEN (St Potassium AN 2020 ed POTASSIUM [facility] 50 MG Oral POTASS 12:00: Medic al, Tablet IUM:97 00 AM PC) LOSARTAN 9492 EDT POTASSIUM:9 69146 Verapamil VERAPA 02/08/ TABLET 90 complet VERAPA MIL MEDGEN (St hydrochlori MIL:89 2019 ed [facility] de 120 MG 7666 12:00: Medical, Oral Tablet 00 AM PC) VERAPAMIL:8 EDT 21867 Losartan LOSART 02/08/ TABLET 180 complet LOSARTA N MEDGEN (St Potassium AN 2019 ed POTASSIUM [facility] 50 MG Oral POTASS 12:00: Medic al, Tablet IUM:97 00 AM PC) LOSARTAN 9492 EDT POTASSIUM:9 42922 Simvastatin SIMVAS 01/15/ TABLET 90 complet SIMV ASTATIN MED[facility] (St 10 MG Oral TATIN: 2020 ed [facility] Tablet [id number] 12:00: Medical, SIMVASTATIN 00 AM PC) :[id number] EDT Simvastatin SIMVAS 01/15/ TABLET 90 complet SIMV ASTATIN MED[facility] (St 10 MG Oral TATIN: 2020 ed [facility] Tablet 000181 12:00: Medical, SIMVASTATIN 00 AM PC) :[id number] EDT Simvastatin SIMVAS 23/ TABLET 90 complet SIMV ASTATIN MED[facility] (St 10 MG Oral TATIN: 2020 ed [facility] Tablet [id number] 12:00: Medical, SIMVASTATIN 00 AM PC) :[id number] EDT Simvastatin SIMVAS 23/ TABLET 90 complet SIMV ASTATIN MED[facility] (St 10 MG Oral TATIN: 2020 ed [facility] Tablet [id number] 12:00: Medical, SIMVASTATIN 00 AM PC) :[id number] EDT Simvastatin SIMVAS 23/ TABLET 90 complet SIMV ASTATIN MED[facility] (St 10 MG Oral TATIN: 2020 ed [facility] Tablet [id number] 12:00: Medical, SIMVASTATIN 00 AM PC) :157852 EDT Simvastatin SIMVAS 23/ TABLET 90 complet SIMV ASTATIN MED[facility] (St 10 MG Oral TATIN: 2020 ed [facility] Tablet [id number] 12:00: Medical, SIMVASTATIN 00 AM PC) :697697 EDT Cholecalcif VITAMI 06/16/ TABLET 30 complet EDDIE MIN D3 MEDGEN (St chanelle 2000 N 2019 ed [facility] UNT Oral D3:801 12:00: Medical , Tablet 663 00 AM PC) VITAMIN EDT D3:132985 Verapamil VERAPA 01/08/ TABLET, 30 complet VERAP BAILEY MEDGEN (St hydrochlori MIL 2020 EXTENDED ed HYDROCHLO RID [facility] de 240 MG HYDROC 12:00: RELEASE E SR Med ical, Extended HLORID 00 AM PC) Release E EDT Oral Tablet SR:897 VERAPAMIL 649 HYDROCHLORI DE [id number] Thiamine VITAMI 01/08/ TABLET 30 complet VITAMIN B1 MED[facility] (St 100 MG Oral N 2019 ed [facility] Tablet B1:313 12:00: Medical, VITAMIN 323 00 AM PC) B1:897427 EDT Dicyclomine BENTYL 01/08/ CAPSULE 30 complet JORGE TYL MEDGEN (St Hydrochlori :91620 2019 ed [facility] de 10 MG 3 12:00: Medical, Oral 00 AM PC) Capsule EDT [Bentyl] BENTYL:9910 63 Alprazolam XANAX: 01/08/ TABLET 30 complet XANAX MED[facility] (St 0.25 MG [id number] 1144 ed [facility] Oral Tablet 12:00: Medica l, [Xanax] 00 AM PC) XANAX:35110 EDT 7 Dicyclomine BENTYL 01/08/ CAPSULE 30 complet JORGE TYL MEDGEN (St Hydrochlori :16013 2019 ed [facility] de 10 MG 3 12:00: Medical, Oral 00 AM PC) Capsule EDT [Bentyl] BENTYL:9910 63 Losartan LOSART 01/08/ TABLET 30 complet LOSARTA N MEDGEN (St Potassium AN 2019 ed POTASSIUM [facility] 50 MG Oral POTASS 12:00: Medic al, Tablet IUM:97 00 AM PC) LOSARTAN 9492 EDT POTASSIUM:9 87780 Amlodipine AMLODI 01/08/ TABLET 30 complet AMLOD IPINE MED[facility] (St 2.5 MG Oral PINE 2019 ed BESYLATE [facility] Tablet BESYLA 12:00: Medical, AMLODIPINE TE:308 00 AM PC) BESYLATE:30 136 EDT 8136 Dicyclomine BENTYL 01/08/ CAPSULE 30 complet JORGE TYL MEDGEN (St Hydrochlori :38336 2019 ed [facility] de 10 MG 3 12:00: Medical, Oral 00 AM PC) Capsule EDT [Bentyl] BENTYL:9910 63 Verapamil VERAPA 16/ TABLET, 30 complet VERAP BAILEY MEDGEN (St hydrochlori MIL 2020 EXTENDED ed HYDROCHLO RID [facility] de 240 MG HYDROC 12:00: RELEASE E SR Med ical, Extended HLORID 00 AM PC) Release E EDT Oral Tablet SR:897 VERAPAMIL 649 HYDROCHLORI DE [id number] Thiamine VITAMI 16/ TABLET 30 complet VITAMIN B1 MED[facility] (St 100 MG Oral N 2019 ed [facility] Tablet B1:313 12:00: Medical, VITAMIN 323 00 AM PC) B1:795840 EDT Simvastatin SIMVAS 01/08/ TABLET 30 complet SIMV ASTATIN [facility] (St 10 MG Oral TATIN: 2019 ed [facility] Tablet [id number] 12:00: Medical, SIMVASTATIN 00 AM PC) :[id number] EDT Verapamil VERAPA /16/ TABLET 30 complet VERAPA MIL [facility]GEN (St hydrochlori MIL:89 2019 ed [facility] de 120 MG 7666 12:00: Medical, Oral Tablet 00 AM PC) VERAPAMIL:8 EDT 60115 Verapamil VERAPA 16/ TABLET, 30 complet VERAP BAILEY MEDGEN (St hydrochlori MIL 2019 EXTENDED ed HYDROCHLO RID [facility] de 240 MG HYDROC 12:00: RELEASE E SR Med ical, Extended HLORID 00 AM PC) Release E EDT Oral Tablet SR:897 VERAPAMIL 649 HYDROCHLORI DE [id number] Cholecalcif VITAMI 16/ TABLET 30 complet EDDIE MIN D3 MED[facility] (St chanelle 2000 N 2019 ed [facility] UNT Oral D3:801 12:00: Medical , Tablet 663 00 AM PC) VITAMIN EDT D3:095117 Alprazolam XANAX: 01/08/ TABLET 30 complet XANAX MED[facility] (St 0.25 MG [id number] 4447 ed [facility] Oral Tablet 12:00: Medica l, [Xanax] 00 AM PC) XANAX:20180 EDT 7 Dicyclomine BENTYL 16/ CAPSULE 30 complet JORGE TYL MEDGEN (St Hydrochlori :64506 2019 ed [facility] de 10 MG 3 12:00: Medical, Oral 00 AM PC) Capsule EDT [Bentyl] BENTYL:9910 63 Verapamil VERAPA 16/ TABLET, 30 complet VERAP BAILEY MEDGEN (St hydrochlori MIL 2019 EXTENDED ed HYDROCHLO RID [facility] de 240 MG HYDROC 12:00: RELEASE E SR Med ical, Extended HLORID 00 AM PC) Release E EDT Oral Tablet SR:897 VERAPAMIL 649 HYDROCHLORI DE SR:[id number] Thiamine VITAMI 16/ TABLET 30 complet VITAMIN B1 MEDGEN (St 100 MG Oral N 2019 ed [facility] Tablet B1:313 12:00: Medical, VITAMIN 323 00 AM PC) B1:881287 EDT Thiamine VITAMI 16/ TABLET 30 complet VITAMIN B1 MEDGEN (St 100 MG Oral N 2019 ed [facility] Tablet B1:313 12:00: Medical, VITAMIN 323 00 AM PC) B1:392181 EDT Cholecalcif VITAMI 16/ TABLET 30 complet EDDIE MIN D3 MEDGEN (St chanelle 1999 N 2019 ed [facility] UNT Oral D3:801 12:00: Medical , Tablet 663 00 AM PC) VITAMIN EDT D3:934249 Alprazolam XANAX: 01/08/ TABLET 30 complet XANAX MED[facility] (St 0.25 MG [id number] 0118 ed [facility] Oral Tablet 12:00: Medica l, [Xanax] 00 AM PC) XANAX:80572 EDT 7 Alprazolam XANAX: 01/08/ TABLET 30 complet XANAX MED[facility] (St 0.25 MG 400505 3346 ed [facility] Oral Tablet 12:00: Medica l, [Xanax] 00 AM PC) XANAX:86945 EDT 7 Thiamine VITAMI 16/ TABLET 30 complet VITAMIN B1 MEDGEN (St 100 MG Oral N 2019 ed [facility] Tablet B1:313 12:00: Medical, VITAMIN 323 00 AM PC) B1:328691 EDT Cholecalcif VITAMI 16/ TABLET 30 complet EDDIE MIN D3 MEDGEN (St chanelle 1999 N 2019 ed [facility] UNT Oral D3:801 12:00: Medical , Tablet 663 00 AM PC) VITAMIN EDT D3:291014 Cholecalcif VITAMI 16/ TABLET 30 complet EDDIE MIN D3 MEDGEN (St chanelle 1999 N 2019 ed [facility] UNT Oral D3:801 12:00: Medical , Tablet 663 00 AM PC) VITAMIN EDT D3:380515 Dicyclomine BENTYL 16/ CAPSULE 30 complet JORGE TYL MEDGEN (St Hydrochlori :74025 2019 ed [facility] de 10 MG 3 12:00: Medical, Oral 00 AM PC) Capsule EDT [Bentyl] BENTYL:9910 63 Verapamil VERAPA 01/08/ TABLET, 30 complet VERAP BAILEY MEDGEN (St hydrochlori MIL 2020 EXTENDED ed HYDROCHLO RID [facility] de 240 MG HYDROC 12:00: RELEASE E SR Med ical, Extended HLORID 00 AM PC) Release E EDT Oral Tablet SR:897 VERAPAMIL 649 HYDROCHLORI DE SR:[id number] Amlodipine AMLODI 01/08/ TABLET 30 complet AMLOD IPINE MEDGEN (St 2.5 MG Oral PINE 2019 ed BESYLATE [facility] Tablet BESYLA 12:00: Medical, AMLODIPINE TE:308 00 AM PC) BESYLATE:30 136 EDT 8136 Amlodipine AMLODI 01/08/ TABLET 30 complet AMLOD IPINE MEDGEN (St 2.5 MG Oral PINE 2019 ed BESYLATE [facility] Tablet BESYLA 12:00: Medical, AMLODIPINE TE:308 00 AM PC) BESYLATE:30 136 EDT 8136 Alprazolam XANAX: 01/08/ TABLET 30 complet XANAX MEDGEN (St 0.25 MG [id number] 9709 ed [facility] Oral Tablet 12:00: Medica l, [Xanax] 00 AM PC) XANAX:63249 EDT 7 Cholecalcif VITAMI 01/08/ TABLET 30 complet EDDIE MIN D3 MEDGEN (St chanelle 2000 N 2019 ed [facility] UNT Oral D3:801 12:00: Medical , Tablet 663 00 AM PC) VITAMIN EDT D3:899151 Verapamil VERAPA 01/08/ TABLET 30 complet VERAPA MIL MEDGEN (St hydrochlori MIL:89 2019 ed [facility] de 120 MG 7666 12:00: Medical, Oral Tablet 00 AM PC) VERAPAMIL:8 EDT 01564 Alprazolam XANAX: 16/ TABLET 30 complet XANAX MEDGEN (St 0.25 MG [id number] 2115 ed [facility] Oral Tablet 12:00: Medica l, [Xanax] 00 AM PC) XANAX:79251 EDT 7 Thiamine VITAMI 01/08/ TABLET 30 complet VITAMIN B1 MEDGEN (St 100 MG Oral N 2019 ed [facility] Tablet B1:313 12:00: Medical, VITAMIN 323 00 AM PC) B1:151827 EDT Cholecalcif VITAMI 01/08/ TABLET 30 complet EDDIE MIN D3 MEDGEN (St chanelle 2000 N 2020 ed [facility] UNT Oral D3:801 12:00: Medical , Tablet 663 00 AM PC) VITAMIN EDT D3:617574 Amlodipine AMLODI 01/08/ TABLET 30 complet AMLOD IPINE MEDGEN (St 2.5 MG Oral PINE 2019 ed BESYLATE [facility] Tablet BESYLA 12:00: Medical, AMLODIPINE TE:308 00 AM PC) BESYLATE:30 136 EDT 8136 Verapamil VERAPA 01/08/ TABLET, 30 complet VERAP BAILEY MEDGEN (St hydrochlori MIL 2019 EXTENDED ed HYDROCHLO RID Dhruv's de 240 MG HYDROC 12:00: RELEASE E SR Med ical, Extended HLORID 00 AM PC) Release E EDT Oral Tablet SR:897 VERAPAMIL 649 HYDROCHLORI DE [id number] Losartan LOSART 01/08/ TABLET 30 complet LOSARTA N MEDGEN (St Potassium AN 2019 ed POTASSIUM Dhruv' s 50 MG Oral POTASS 12:00: Medic al, Tablet IUM:97 00 AM PC) LOSARTAN 9492 EDT POTASSIUM:9 91842 Dicyclomine BENTYL 01/08/ CAPSULE 30 complet JORGE TYL MEDGEN (St Hydrochlori :82147 2019 ed Dhruv's de 10 MG 3 12:00: Medical, Oral 00 AM PC) Capsule EDT [Bentyl] BENTYL:9910 63 Alprazolam XANAX: 01/08/ TABLET 30 complet XANAX MEDGEN (St 0.25 MG [id number] 8407 ed Dhruv's Oral Tablet 12:00: Medica l, [Xanax] 00 AM PC) XANAX:71205 EDT 7 Thiamine VITAMI 01/08/ TABLET 30 complet VITAMIN B1 MEDGEN (St 100 MG Oral N 2019 ed Dhruv's Tablet B1:313 12:00: Medical, VITAMIN 323 00 AM PC) B1:[id number] EDT Dicyclomine BENTYL 01/08/ CAPSULE 30 complet JORGE TYL MEDGEN (St Hydrochlori :45448 2019 ed Dhruv's de 10 MG 3 12:00: Medical, Oral 00 AM PC) Capsule EDT [Bentyl] BENTYL:9910 63 Insurance Providers Payer name Policy type Policy ID Covered Covered republican's Policy P arlene / Coverage republican ID relationship to Kothari Inf ormation type kothari GHI PPO [id number] SP [id number] BC PPO [id number] SP [id number] MEDICARE [id number] SP [id number] EMPIRE /BS [id number] [facility] [id number] GHI [id number] [place] [id number] PART B DOWNSTATE GHI PPO [id number] SP [id number] HIP HMO [id number] SP [id number] EMPIRE BC/BS [id number] Problems, Conditions, and Diagnoses Code Display Name Description Problem Type Effective Data Dates Source(s) Z48.02 Encounter for ENCOUNTER FOR Problem 03/05/2020 MEDGEN ( St removal of sutures REMOVAL OF SUTURES 12:00:00 AM [facility], ) Z48.02 Encounter for ENCOUNTER FOR Problem 03/05/2020 MEDGEN ( St removal of sutures REMOVAL OF SUTURES 12:00:00 AM [facility], ) Z48.02 Encounter for ENCOUNTER FOR Problem 03/05/2020 MEDGEN ( St removal of sutures REMOVAL OF SUTURES 12:00:00 AM [facility], ) Z48.02 Encounter for ENCOUNTER FOR Problem 03/05/2020 MEDGEN ( St removal of sutures REMOVAL OF SUTURES 12:00:00 AM [facility], ) Z23 Encounter for ENCOUNTER FOR Problem 03/01/2020 MEDGEN ( St immunization IMMUNIZATION 12:00:00 AM [facility], ) Z23 Encounter for ENCOUNTER FOR Problem 03/01/2020 MEDGEN ( St immunization IMMUNIZATION 12:00:00 AM [facility], ) Z23 Encounter for ENCOUNTER FOR Problem 03/01/2020 MEDGEN ( St immunization IMMUNIZATION 12:00:00 AM [facility], ) Z23 Encounter for ENCOUNTER FOR Problem 03/01/2020 MEDGEN ( St immunization IMMUNIZATION 12:00:00 AM [facility]) Z23 Encounter for ENCOUNTER FOR Problem 03/01/2020 MEDGEN ( St immunization IMMUNIZATION 12:00:00 AM [facility]) 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 12:00:00 AM [facility]) E78.5 Hyperlipidemia, HYPERLIPIDEMIA, Problem 01/09/2020 MEDG EN (St unspecified UNSPECIFIED 12:00:00 AM [facility]) K58.9 Irritable bowel IRRITABLE BOWEL Problem 01/09/2020 MEDG EN (St syndrome without SYNDROME WITHOUT 12:00:00 AM J wan's diarrhea DIARRHEA [facility]) 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 Problem 01/09/2020 MEDG EN (St 12:00:00 AM [facility]) F41.9 Anxiety disorder, ANXIETY DISORDER, Problem 01/09/2020 MEDGEN (St unspecified UNSPECIFIED 12:00:00 AM [facility]) I10 Essential (primary) ESSENTIAL (PRIMARY) Problem 020 MEDGEN (St hypertension HYPERTENSION 12:00:00 AM [facility]) F10.11 Alcohol abuse, in ALCOHOL ABUSE, IN Problem 01/09/2020 MEDGEN (St remission REMISSION 12:00:00 AM [facility]) 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 12:00:00 AM [facility]) E78.5 Hyperlipidemia, HYPERLIPIDEMIA, Problem 01/09/2020 MEDG EN (St unspecified UNSPECIFIED 12:00:00 AM [facility]) K58.9 Irritable bowel IRRITABLE BOWEL Problem 01/09/2020 MEDG EN (St syndrome without SYNDROME WITHOUT 12:00:00 AM J ohn's diarrhea DIARRHEA [facility]) 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 Problem 01/09/2020 MEDG EN (St 12:00:00 AM [facility]) F41.9 Anxiety disorder, ANXIETY DISORDER, Problem 01/09/2020 MEDGEN (St unspecified UNSPECIFIED 12:00:00 AM [facility]) I10 Essential (primary) ESSENTIAL (PRIMARY) Problem 020 MEDGEN (St hypertension HYPERTENSION 12:00:00 AM [facility]) F10.11 Alcohol abuse, in ALCOHOL ABUSE, IN Problem 01/09/2020 MEDGEN (St remission REMISSION 12:00:00 AM [facility]) 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 12:00:00 AM [facility]) E78.5 Hyperlipidemia, HYPERLIPIDEMIA, Problem 01/09/2020 MEDG EN (St unspecified UNSPECIFIED 12:00:00 AM [facility]) K58.9 Irritable bowel IRRITABLE BOWEL Problem 01/09/2020 MEDG EN (St syndrome without SYNDROME WITHOUT 12:00:00 AM ohn's diarrhea DIARRHEA [facility]) 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 Problem 01/09/2020 MEDG EN (St 12:00:00 AM [facility]) F41.9 Anxiety disorder, ANXIETY DISORDER, Problem 01/09/2020 MEDGEN (St unspecified UNSPECIFIED 12:00:00 AM [facility]) I10 Essential (primary) ESSENTIAL (PRIMARY) Problem 020 MEDGEN (St hypertension HYPERTENSION 12:00:00 AM [facility]) F10.11 Alcohol abuse, in ALCOHOL ABUSE, IN Problem 01/09/2020 MEDGEN (St remission REMISSION 12:00:00 AM [facility]) 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 12:00:00 AM [facility]) E78.5 Hyperlipidemia, HYPERLIPIDEMIA, Problem 01/09/2020 MEDG EN (St unspecified UNSPECIFIED 12:00:00 AM [facility]) K58.9 Irritable bowel IRRITABLE BOWEL Problem 01/09/2020 MEDG EN (St syndrome without SYNDROME WITHOUT 12:00:00 AM J ohn's diarrhea DIARRHEA [facility]) 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 Problem 01/09/2020 MEDG EN (St 12:00:00 AM [facility]) F41.9 Anxiety disorder, ANXIETY DISORDER, Problem 01/09/2020 MEDGEN (St unspecified UNSPECIFIED 12:00:00 AM [facility]) I10 Essential (primary) ESSENTIAL (PRIMARY) Problem 020 MEDGEN (St hypertension HYPERTENSION 12:00:00 AM [facility]) F10.11 Alcohol abuse, in ALCOHOL ABUSE, IN Problem 01/09/2020 MEDGEN (St remission REMISSION 12:00:00 AM [facility]) 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 12:00:00 AM [facility]) E78.5 Hyperlipidemia, HYPERLIPIDEMIA, Problem 01/09/2020 MEDG EN (St unspecified UNSPECIFIED 12:00:00 AM [facility]) K58.9 Irritable bowel IRRITABLE BOWEL Problem 01/09/2020 MEDG EN (St syndrome without SYNDROME WITHOUT 12:00:00 AM J wan's diarrhea DIARRHEA [facility]) 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 Problem 01/09/2020 MEDG EN (St 12:00:00 AM [facility]) F41.9 Anxiety disorder, ANXIETY DISORDER, Problem 01/09/2020 MEDGEN (St unspecified UNSPECIFIED 12:00:00 AM [facility]) I10 Essential (primary) ESSENTIAL (PRIMARY) Problem 020 MEDGEN (St hypertension HYPERTENSION 12:00:00 AM [facility]) F10.11 Alcohol abuse, in ALCOHOL ABUSE, IN Problem 01/09/2020 MEDGEN (St remission REMISSION 12:00:00 AM [facility]) Surgeries/Procedures Procedure Description Date Indications Data Source(s) Documentation of current 04/18/2020 MED GEN (French's medications (procedure) 12:00:00 AM EDT [facility], [facility]) Documentation of current 04/18/2020 MED GEN (French's medications (procedure) 12:00:00 AM EDT [facility]) Documentation of current 04/18/2020 MED GEN (French's medications (procedure) 12:00:00 AM EDT [facility]) OFFICE OUTPATIENT VISIT 04/18/2020 MEDG EN (French's 25 MINUTES 12:00:00 AM EDT Medical, PC) Documentation of current 04/02/2020 MED GEN (French's medications (procedure) 12:00:00 AM EDT [facility], [facility]) Documentation of current 04/02/2020 MED GEN (French's medications (procedure) 12:00:00 AM EDT [facility], [facility]) Documentation of current 04/02/2020 MED GEN (French's medications (procedure) 12:00:00 AM EDT [facility], PC) Documentation of current 04/02/2020 MED GEN (French's medications (procedure) 12:00:00 AM EDT [facility], [facility]) Documentation of current 04/02/2020 MED GEN (French's medications (procedure) 12:00:00 AM EDT [facility], PC) Documentation of current 04/02/2020 MED GEN (French's medications (procedure) 12:00:00 AM EDT [facility], [facility]) Documentation of current 04/02/2020 MED GEN (French's medications (procedure) 12:00:00 AM EDT [facility], PC) OFFICE OUTPATIENT VISIT 04/02/2020 MEDG EN (French's 25 MINUTES 12:00:00 AM EDT Medical, PC) Documentation of current 04/02/2020 MED GEN (French's medications (procedure) 12:00:00 AM EDT [facility], PC) Documentation of current 04/02/2020 MED GEN (French's medications (procedure) 12:00:00 AM EDT [facility], [facility]) OFFICE OUTPATIENT VISIT 04/02/2020 MEDG EN (French's 25 MINUTES 12:00:00 AM EDT Medical, PC) Documentation of current 03/14/2020 MED GEN (French's medications (procedure) 12:00:00 AM EDT [facility], PC) Documentation of current 03/14/2020 MED GEN (French's medications (procedure) 12:00:00 AM EDT [facility], PC) Documentation of current 03/14/2020 MED GEN (French's medications (procedure) 12:00:00 AM EDT [facility], PC) Documentation of current 03/14/2020 MED GEN (French's medications (procedure) 12:00:00 AM EDT [facility], [facility]) Documentation of current 03/14/2020 MED GEN (French's medications (procedure) 12:00:00 AM EDT [facility], PC) OFFICE OUTPATIENT VISIT 03/14/2020 MEDG EN (French's 25 MINUTES 12:00:00 AM EDT Medical, PC) Documentation of current 03/14/2020 MED GEN (French's medications (procedure) 12:00:00 AM EDT [facility], [facility]) Documentation of current 03/14/2020 MED GEN (French's medications (procedure) 12:00:00 AM EDT [facility], PC) Documentation of current 03/14/2020 MED GEN (French's medications (procedure) 12:00:00 AM EDT [facility], PC) Documentation of current 03/14/2020 MED GEN (French's medications (procedure) 12:00:00 AM EDT [facility], PC) Documentation of current 03/14/2020 MED GEN (French's medications (procedure) 12:00:00 AM EDT [facility], PC) OFFICE OUTPATIENT VISIT 03/14/2020 MEDG EN (French's 25 MINUTES 12:00:00 AM EDT Medical, PC) Documentation of current 03/14/2020 MED GEN (French's medications (procedure) 12:00:00 AM EDT [facility], PC) Documentation of current 03/14/2020 MED GEN (French's medications (procedure) 12:00:00 AM EDT [facility], PC) Documentation of current 03/14/2020 MED GEN (French's medications (procedure) 12:00:00 AM EDT [facility], PC) OFFICE OUTPATIENT VISIT 03/14/2020 MEDG EN (French's 25 MINUTES 12:00:00 AM EDT Medical, PC) Documentation of current 03/05/2020 MED GEN (French's medications (procedure) 12:00:00 AM EDT [facility]) OFFICE OUTPATIENT VISIT 03/05/2020 MEDG EN (French's 10 MINUTES 12:00:00 AM [facility]) Documentation of current 03/05/2020 MED GEN (French's medications (procedure) 12:00:00 AM EDT [facility]) OFFICE OUTPATIENT VISIT 03/05/2020 MEDG EN (French's 10 MINUTES 12:00:00 AM [facility]) Documentation of current 03/05/2020 MED GEN (French's medications (procedure) 12:00:00 AM EDT [facility]) OFFICE OUTPATIENT VISIT 03/05/2020 MEDG EN (French's 10 MINUTES 12:00:00 AM [facility]) Documentation of current 03/05/2020 MED [facility] 03/05/2020 MEDG EN (French's 10 MINUTES 12:00:00 AM [facility]) Documentation of current 03/01/2020 MED GEN (French's medications (procedure) 12:00:00 AM EDT [facility]) Documentation of current 03/01/2020 MED GEN (French's medications (procedure) 12:00:00 AM EDT [facility]) OFFICE OUTPATIENT VISIT 03/01/2020 MEDG EN (French's 25 MINUTES 12:00:00 AM [facility]) TDAP VACCINE 7/> YR IM 03/01/2020 MEDGE N (French's 12:00:00 AM [facility]) IMADM PRQ ID SUBQ/IM NJXS 03/01/2020 ME DGEN (French's 1 VACCINE 12:00:00 AM [facility]) Documentation of current 03/01/2020 MED GEN (French's medications (procedure) 12:00:00 AM EDT [facility]) Documentation of current 03/01/2020 MED GEN [facility]French[facility] 03/01/2020 MEDG EN (French's 25 MINUTES 12:00:00 AM [facility]) TDAP VACCINE 7/> YR IM 03/01/2020 MEDGE N (French's 12:00:00 AM [facility], ) IMADM PRQ ID SUBQ/IM NJXS 03/01/2020 ME DGEN (French's 1 VACCINE 12:00:00 AM [facility], ) Documentation of current 03/01/2020 MED GEN (French's medications (procedure) 12:00:00 AM EDT [facility]) Documentation of current 03/01/2020 MED GEN (French's medications (procedure) 12:00:00 AM EDT [facility]) OFFICE OUTPATIENT VISIT 03/01/2020 MEDG EN (French's 25 MINUTES 12:00:00 AM [facility], ) TDAP VACCINE 7/> YR IM 03/01/2020 MEDGE N (French's 12:00:00 AM [facility], ) IMADM PRQ ID SUBQ/IM NJXS 03/01/2020 ME DGEN (French's 1 VACCINE 12:00:00 AM [facility], ) Documentation of current 03/01/2020 MED GEN (French's medications (procedure) 12:00:00 AM EDT [facility]) Documentation of current 03/01/2020 MED GEN (French's medications (procedure) 12:00:00 AM EDT [facility]) OFFICE OUTPATIENT VISIT 03/01/2020 MEDG EN (French's 25 MINUTES 12:00:00 AM [facility], ) TDAP VACCINE 7/> YR IM 03/01/2020 MEDGE N (French's 12:00:00 AM [facility], ) IMADM PRQ ID SUBQ/IM NJXS 03/01/2020 ME DGEN (French's 1 VACCINE 12:00:00 AM [facility], ) Documentation of current 03/01/2020 MED GEN (French's medications (procedure) 12:00:00 AM EDT [facility]) Documentation of current 03/01/2020 MED GEN (French's medications (procedure) 12:00:00 AM [facility]) OFFICE OUTPATIENT VISIT 03/01/2020 MEDG EN (French's 25 MINUTES 12:00:00 AM [facility]) TDAP VACCINE 7/> YR IM 03/01/2020 MEDGE N (French's 12:00:00 AM EDT Medical, ) IMADM PRQ ID SUBQ/IM NJXS 03/01/2020 ME DGEN (French's 1 VACCINE 12:00:00 AM EDT Medical, ) Documentation of current 02/09/2020 MED GEN (French's medications (procedure) 12:00:00 AM EDT edical, ) Documentation of current 02/09/2020 MED GEN (French's medications (procedure) 12:00:00 AM EDT edical, ) Documentation of current 02/09/2020 MED GEN (French's medications (procedure) 12:00:00 AM EDT edical, ) Documentation of current 02/09/2020 MED GEN (French's medications (procedure) 12:00:00 AM EDT edical, ) OFFICE OUTPATIENT VISIT 02/09/2020 MEDG EN (French's 25 MINUTES 12:00:00 AM EDT [facility], ) Documentation of current 02/09/2020 MED GEN (French's medications (procedure) 12:00:00 AM EDT edical, ) Documentation of current 02/09/2020 MED GEN (French's medications (procedure) 12:00:00 AM EDT edical, ) Documentation of current 02/09/2020 MED GEN (French's medications (procedure) 12:00:00 AM EDT edical, ) Documentation of current 02/09/2020 MED GEN (French's medications (procedure) 12:00:00 AM EDT edical, ) OFFICE OUTPATIENT VISIT 02/09/2020 MEDG EN (French's 25 MINUTES 12:00:00 AM T [facility], ) Documentation of current 02/09/2020 MED GEN (French's medications (procedure) 12:00:00 AM EDT edical, ) Documentation of current 02/09/2020 MED GEN (French's medications (procedure) 12:00:00 AM EDT edical, ) Documentation of current 02/09/2020 MED GEN (French's medications (procedure) 12:00:00 AM EDT edical, ) Documentation of current 02/09/2020 MED GEN (French's medications (procedure) 12:00:00 AM EDT edical, ) OFFICE OUTPATIENT VISIT 02/09/2020 MEDG EN (French's 25 MINUTES 12:00:00 AM EDT Medical, PC) Documentation of current 02/09/2020 MED GEN (French's medications (procedure) 12:00:00 AM EDT edical, ) Documentation of current 02/09/2020 MED GEN (French's medications (procedure) 12:00:00 AM EDT edical, ) Documentation of current 02/09/2020 MED GEN (French's medications (procedure) 12:00:00 AM EDT edical, PC) Documentation of current 02/09/2020 MED GEN (French's medications (procedure) 12:00:00 AM EDT edical, ) OFFICE OUTPATIENT VISIT 02/09/2020 MEDG EN (French's 25 MINUTES 12:00:00 AM EDT Medical, PC) Documentation of current 02/09/2020 MED GEN (French's medications (procedure) 12:00:00 AM EDT edical, PC) Documentation of current 02/09/2020 MED GEN (French's medications (procedure) 12:00:00 AM EDT edical, PC) Documentation of current 02/09/2020 MED GEN (French's medications (procedure) 12:00:00 AM EDT edical, PC) Documentation of current 02/09/2020 MED GEN (French's medications (procedure) 12:00:00 AM EDT edical, ) OFFICE OUTPATIENT VISIT 02/09/2020 MEDG EN (French's 25 MINUTES 12:00:00 AM EDT Medical, PC) Documentation of current 02/09/2020 MED GEN (French's medications (procedure) 12:00:00 AM EDT edical, PC) Documentation of current 02/09/2020 MED GEN (French's medications (procedure) 12:00:00 AM EDT edical, PC) OFFICE OUTPATIENT VISIT 02/09/2020 MEDG EN (French's 25 MINUTES 12:00:00 AM EDT Medical, PC) Documentation of current 01/09/2020 MED GEN (French's medications (procedure) 12:00:00 AM EDT [facility], ) Documentation of current 01/09/2020 MED GEN (French's medications (procedure) 12:00:00 AM EDT edical, PC) Documentation of current 01/09/2020 MED GEN (French's medications (procedure) 12:00:00 AM EDT edical, PC) Documentation of current 01/09/2020 MED GEN (French's medications (procedure) 12:00:00 AM EDT [facility], PC) Documentation of current 01/09/2020 MED GEN (French's medications (procedure) 12:00:00 AM EDT [facility], ) Documentation of current 01/09/2020 MED GEN (French's medications (procedure) 12:00:00 AM EDT [facility], PC) Initial preventive 01/09/2020 MEDGEN (S t Dhruv's physical examination; 12:00:00 AM EDT [facility], ) [id number] visit, services limited to new beneficiary during the first 12 months of medicare enrollment ECG ROUTINE ECG W/LEAST 01/09/2020 MEDG EN (French's 12 LDS W/I&R 12:00:00 AM [facility], ) Documentation of current 01/09/2020 MED GEN (French's medications (procedure) 12:00:00 AM EDT [facility], ) Documentation of current 01/09/2020 MED GEN (French's medications (procedure) 12:00:00 AM EDT [facility], ) Documentation of current 01/09/2020 MED GEN (French's medications (procedure) 12:00:00 AM EDT [facility], [facility]) Documentation of current 01/09/2020 MED GEN (French's medications (procedure) 12:00:00 AM EDT [facility], PC) Documentation of current 01/09/2020 MED GEN (French's medications (procedure) 12:00:00 AM EDT edical, PC) Documentation of current 01/09/2020 MED GEN (French's medications (procedure) 12:00:00 AM EDT edical, ) Initial preventive 01/09/2020 MEDGEN (S t Dhruv's physical examination; 12:00:00 AM EDT [facility], [facility]) cfwm-uy-dyin visit, services limited to new beneficiary during the first 12 months of medicare enrollment ECG ROUTINE ECG W/LEAST 01/09/2020 MEDG EN (French's 12 LDS [facility] of current 01/09/2020 MED GEN (French's medications (procedure) 12:00:00 AM EDT [facility], PC) Documentation of current 01/09/2020 MED GEN (French's medications (procedure) 12:00:00 AM EDT ed[facility], PC) Documentation of current 01/09/2020 MED GEN (French's medications (procedure) 12:00:00 AM EDT edical, PC) Documentation of current 01/09/2020 MED GEN (French's medications (procedure) 12:00:00 AM EDT edical, PC) Documentation of current 01/09/2020 MED GEN (French's medications (procedure) 12:00:00 AM EDT edical, PC) Documentation of current 01/09/2020 MED GEN (French's medications (procedure) 12:00:00 [facility], ) Initial preventive 01/09/2020 MEDGEN (S t Dhruv's physical examination; 12:00:00 AM [facility], ) ejhw-vu-[id number] visit, services limited to new beneficiary during the first 12 months of medicare enrollment ECG ROUTINE ECG W/LEAST 01/09/2020 MEDG EN (French's 12 LDS W[facility] of current 01/09/2020 MED GEN (French's medications (procedure) 12:00:00 AM EDT [facility], PC) Documentation of current 01/09/2020 MED GEN (French's medications (procedure) 12:00:00 AM EDT ed[facility], PC) Documentation of current 01/09/2020 MED GEN (French's medications (procedure) 12:00:00 AM EDT ed[facility], PC) Documentation of current 01/09/2020 MED GEN (French's medications (procedure) 12:00:00 AM EDT edical, PC) Documentation of current 01/09/2020 MED GEN (French's medications (procedure) 12:00:00 AM EDT edical, ) Documentation of current 01/09/2020 MED GEN (French's medications (procedure) 12:00:00 AM EDT edical, ) Initial preventive 01/09/2020 MEDGEN (S t Dhruv's physical examination; 12:00:00 AM T [facility], ) udkz-un-[id number] visit, services limited to new beneficiary during the first 12 months of medicare enrollment ECG ROUTINE ECG W/LEAST 01/09/2020 MEDG EN (French's 12 LDS W/I&R 12:00:00 AM [facility], ) Documentation of current 01/09/2020 MED GEN (French's medications (procedure) 12:00:00 AM EDT [facility], ) Documentation of current 01/09/2020 MED GEN (French's medications (procedure) 12:00:00 AM EDT [facility], ) Documentation of current 01/09/2020 MED GEN (French's medications (procedure) 12:00:00 AM EDT [facility], ) Documentation of current 01/09/2020 MED GEN (French's medications (procedure) 12:00:00 AM EDT [facility], ) Documentation of current 01/09/2020 MED GEN (French's medications (procedure) 12:00:00 AM EDT [facility], ) Documentation of current 01/09/2020 MED GEN (French's medications (procedure) 12:00:00 AM EDT [facility], ) Initial preventive 01/09/2020 MEDGEN (S t Dhruv's physical examination; 12:00:00 AM EDT [facility], ) [id number] visit, services limited to new beneficiary during the first 12 months of medicare enrollment ECG ROUTINE ECG W/LEAST 01/09/2020 MEDG EN (French's 12 LDS W/I&R 12:00:00 AM [facility], ) Documentation of current 01/09/2020 MED GEN (French's medications (procedure) 12:00:00 AM EDT [facility], ) Documentation of current 01/09/2020 MED GEN (French's medications (procedure) 12:00:00 AM EDT [facility], ) Documentation of current 01/09/2020 MED GEN (French's medications (procedure) 12:00:00 AM EDT [facility], ) Documentation of current 01/09/2020 MED GEN (French's medications (procedure) 12:00:00 AM EDT [facility], ) Documentation of current 01/09/2020 MED GEN (French's medications (procedure) 12:00:00 AM T [facility], ) Documentation of current 01/09/2020 MED GEN (French's medications (procedure) 12:00:00 AM EDT [facility], ) Initial preventive 01/09/2020 MEDGEN (S t Dhruv's physical examination; 12:00:00 AM EDT [facility], ) dyor-ko-avcf visit, services limited to new beneficiary during the first 12 months of medicare enrollment ECG ROUTINE ECG W/LEAST 01/09/2020 MEDG EN (French's 12 LDS W/I&R 12:00:00 AM [facility], ) Documentation of current 01/09/2020 MED GEN (French's medications (procedure) 12:00:00 AM EDT [facility], ) Documentation of current 01/09/2020 MED GEN (French's medications (procedure) 12:00:00 AM EDT [facility], ) Documentation of current 01/09/2020 MED GEN (French's medications (procedure) 12:00:00 AM EDT [facility], ) Documentation of current 01/09/2020 MED GEN (French's medications (procedure) 12:00:00 AM EDT [facility], ) Initial preventive 01/09/2020 MEDGEN (S t Dhruv's physical examination; 12:00:00 AM T [facility], ) dshc-[id number] visit, services limited to new beneficiary during the first 12 months of medicare enrollment ECG ROUTINE ECG W/LEAST 01/09/2020 MEDG EN (French's 12 LDS W/I&R 12:00:00 AM [facility]) Results ID Date Data Source [id number] 02/26/2020 06:55:00 PM EDT [facility] Name Value Range Interpretation Description Data Sup porting Code Source(s) Document(s ) SARS [facility] coronavirus 2 RNA This lab was ordered by LIBRADO zimmerman [facility] and reported by [facility]. Procedure Social History Code Duration Value Status Description Data Source(s ) Smoking 04/18/2020 Marital status: completed Marital status: MEDG EN (St 12:00:00 AM EDT Children: Child rolando: Coral Rollins, 2 daughters 2 daughters PC) Occupation: Occupation: retired; Teacher retired; Teacher Tobacco use: Tobacco use: former smoker - former smoker - quit in 1986 quit in 1986 Alcohol use: Alcohol use: recovering recovering alcoholic - drank alcoholic - drank wine - quit in wine - quit in 2017 2017 Smoking 04/18/2020 Unknown if ever completed Unknown if ever MEDG EN (St 12:00:00 AM EDT smoked smoked Coral Pinon dical, PC) Smoking 04/02/2020 Marital status: completed Marital status: MEDG EN (St 12:00:00 AM EDT Children: Child rolando: Coral Rollins, 2 daughters 2 daughters PC) Occupation: Occupation: retired; Teacher retired; Teacher Tobacco use: Tobacco use: former smoker - former smoker - quit in 1986 quit in 1986 Alcohol use: Alcohol use: recovering recovering alcoholic - drank alcoholic - drank wine - quit in wine - quit in 2017 2017 Smoking 04/02/2020 Unknown if ever completed Unknown if ever MEDG EN (St 12:00:00 AM EDT smoked smoked [facility] Pinon dical, PC) Smoking 03/14/2020 Marital status: completed Marital status: MEDG EN (St 12:00:00 AM EDT Children: Child rolando: Coral Rollins, 2 daughters 2 daughters PC) Occupation: Occupation: retired; Teacher retired; Teacher Tobacco use: Tobacco use: former smoker - former smoker - quit in 1986 quit in 1986 Alcohol use: Alcohol use: recovering recovering alcoholic - drank alcoholic - drank wine - quit in wine - quit in 2017 2017 Smoking 03/14/2020 Unknown if ever completed Unknown if ever MEDG EN (St 12:00:00 AM EDT smoked smoked [facility]al Pinon dical, PC) Smoking 03/05/2020 Marital status: completed Marital status: MEDG EN (St 12:00:00 AM EDT Children: Child rolando: Coral Rollins, 2 daughters 2 daughters PC) Occupation: Occupation: retired; Teacher retired; Teacher Tobacco use: Tobacco use: former smoker - former smoker - quit in 1986 quit in 1986 Alcohol use: Alcohol use: recovering recovering alcoholic - drank alcoholic - drank wine - quit in wine - quit in 2017 2017 Smoking 03/05/2020 Unknown if ever completed Unknown if ever MEDG EN (St 12:00:00 AM EDT smoked smoked [facility] Pinon dical, PC) Smoking 03/01/2020 Marital status: completed Marital status: MEDG EN (St 12:00:00 AM EDT Children: Child rolando: Coral Rollins, 2 daughters 2 daughters PC) Occupation: Occupation: retired; Teacher retired; Teacher Tobacco use: Tobacco use: former smoker - former smoker - quit in 1986 quit in 1986 Alcohol use: Alcohol use: recovering recovering alcoholic - drank alcoholic - drank wine - quit in wine - quit in 2017 2017 Smoking 03/01/2020 Unknown if ever completed Unknown if ever MEDG EN (St 12:00:00 AM EDT smoked smoked Coral Pinon dical, PC) Smoking 02/09/2020 Marital status: completed Marital status: MEDG EN (St 12:00:00 AM EDT Children: Child rolando: Coral Rollins, 2 daughters 2 daughters PC) Occupation: Occupation: retired; Teacher retired; Teacher Tobacco use: Tobacco use: former smoker - former smoker - quit in 1986 quit in 1986 Alcohol use: Alcohol use: recovering recovering alcoholic - drank alcoholic - drank wine - quit in wine - quit in 2017 2017 Smoking 02/09/2020 Unknown if ever completed Unknown if ever MEDG EN (St 12:00:00 AM EDT smoked smoked [facility]al Pinon dical, PC) Smoking 01/14/2020 Marital status: completed Marital status: MEDG EN (St 12:00:00 AM EDT Children: Child rolando: Coral Rollins, 2 daughters 2 daughters PC) Occupation: Occupation: retired; Teacher retired; Teacher Tobacco use: Tobacco use: former smoker - former smoker - quit in 1986 quit in 1986 Alcohol use: Alcohol use: recovering recovering alcoholic - drank alcoholic - drank wine - quit in wine - quit in 2017 2017 Smoking 01/14/2020 Unknown if ever completed Unknown if ever MEDG EN (St 12:00:00 AM EDT smoked smoked [facility]al Pinon dical, PC) Vital Signs ID Date Data Source UNK Name Value Range Interpretation Code Description Data Source(s) Diastolic blood 70 mm[Hg] 70 mm[Hg] MEDGEN (S t pressure [facility]) Systolic blood 168 mm[Hg] 168 mm[Hg] MEDGEN ([facility]) Body weight 92 lb 92 lb [facility] [place] [place]) Body height 59.5 in 59.5 in MEDGEN ([facility] [place], [place]) Heart rate 85 /min 85 /min MEDGEN ([facility] [place] [place]) Respiratory rate 18 /min 18 /min MEDGEN ( [facility] [place] [place]) Body temperature 97.3 F 97.3 F MEDGEN ( [facility] [place] [place]) Inhaled oxygen 95 % 95 % MEDGEN ([facility]) Body mass index 18.3 kg/m2 18.3 kg/m2 MEDGEN (S t (BMI) [Ratio] [facility]) Heart rate 85 /min 85 /min MEDGEN ([facility] [place] [place]) Respiratory rate 18 /min 18 /min MEDGEN ( [facility] [place] [place]) Body temperature 97.5 F 97.5 F MEDGEN ( [facility] [place] [place]) Inhaled oxygen 99 % 99 % MEDGEN ([facility]) Body mass index 18.1 kg/m2 18.1 kg/m2 MEDGEN (S t (BMI) [Ratio] [facility]) Diastolic blood 80 mm[Hg] 80 mm[Hg] MEDGEN (S t [facility]) Systolic blood 154 mm[Hg] 154 mm[Hg] MEDGEN ([facility]) Body weight 91 lb 91 lb MEDGEN ([facility] [place], [place]) Body height 59.5 in 59.5 in MEDGEN ([facility] [place] [place]) Heart rate 85 /min 85 /min MEDGEN ([facility] [place] [place]) Respiratory rate 18 /min 18 /min MEDGEN ( [facility] [place] [place]) Body temperature 97.5 F 97.5 F MEDGEN ( [facility] [place] [place]) Inhaled oxygen 99 % 99 % MEDGEN ([facility]) Body mass index 18.1 kg/m2 18.1 kg/m2 MEDGEN (S t (BMI) [Ratio] [facility], ) Diastolic blood 80 mm[Hg] 80 mm[Hg] MEDGEN (S t pressure [facility]) Systolic blood 154 mm[Hg] 154 mm[Hg] MEDGEN ([facility]) Body weight 91 lb 91 lb MEDGEN ([facility] [place] [place]) Body height 59.5 in 59.5 in MEDGEN ([facility] [place] [place]) Heart rate 77 /min 77 /min MEDGEN ([facility] [place] [place]) Respiratory rate 18 /min 18 /min MEDGEN ( [facility] [place] [place]) Body temperature 97.7 F 97.7 F MEDGEN ( [facility] [place] [place]) Inhaled oxygen 96 % 96 % MEDGEN ([facility]) Body mass index 18.3 kg/m2 18.3 kg/m2 MEDGEN (S t (BMI) [Ratio] [facility], ) Diastolic blood 58 mm[Hg] 58 mm[Hg] MEDGEN (S t [facility]) Systolic blood 127 mm[Hg] 127 mm[Hg] MEDGEN ([facility]) Body weight 92 lb 92 lb MEDGEN ([facility] [place] [place]) Body height 59.5 in 59.5 in MEDGEN ([facility] [place] [place]) Heart rate 77 /min 77 /min MEDGEN ([facility] [place] [place]) Respiratory rate 18 /min 18 /min MEDGEN ( [facility] [place] [place]) Body temperature 97.7 F 97.7 F MEDGEN ( [facility] [place] [place]) Inhaled oxygen 96 % 96 % MEDGEN ([facility]) Body mass index 18.3 kg/m2 18.3 kg/m2 MEDGEN (S t (BMI) [Ratio] [facility], ) Diastolic blood 58 mm[Hg] 58 mm[Hg] MEDGEN (S t pressure [facility]) Systolic blood 127 mm[Hg] 127 mm[Hg] MEDGEN ([facility]) Body weight 92 lb 92 lb MEDGEN ([facility] [place] [place]) Body height 59.5 in 59.5 in MEDGEN ([facility] [place] [place]) Heart rate 77 /min 77 /min MEDGEN ([facility] [place] [place]) Respiratory rate 18 /min 18 /min MEDGEN ( [facility] [place] [place]) Body temperature 97.7 F 97.7 F MEDGEN ( [facility] [place] [place]) Inhaled oxygen 96 % 96 % MEDGEN ([facility], ) Body mass index 18.3 kg/m2 18.3 kg/m2 MEDGEN (S t (BMI) [Ratio] [facility], ) Diastolic blood 58 mm[Hg] 58 mm[Hg] MEDGEN (S [facility]) Systolic blood 127 mm[Hg] 127 mm[Hg] MEDGEN ([facility]) Body weight 92 lb 92 lb MEDGEN ([facility] [place] [place]) Body height 59.5 in 59.5 in MEDGEN ([facility] [place] [place]) Heart rate 76 /min 76 /min MEDGEN ([facility] [place] [place]) Respiratory rate 18 /min 18 /min MEDGEN ( [facility] [place] [place]) Body temperature 97.7 F 97.7 F MEDGEN ( [facility] [place] [place]) Inhaled oxygen 97 % 97 % MEDGEN ([facility], ) Diastolic blood 50 mm[Hg] 50 mm[Hg] MEDGEN ([facility] [place] , ) Systolic blood 115 mm[Hg] 115 mm[Hg] MEDGEN ([facility] , ) Heart rate 76 /min 76 /min MEDGEN ([facility] [place] [facility] ) Respiratory rate 18 /min 18 /min MEDGEN ( [facility] [place] [place]) Body temperature 97.7 F 97.7 F MEDGEN ( [facility] [place] [place]) Inhaled oxygen 97 % 97 % MEDGEN ([facility], ) Diastolic blood 50 mm[Hg] 50 mm[Hg] MEDGEN (S t [facility] [place] , ) Systolic blood 115 mm[Hg] 115 mm[Hg] MEDGEN ([facility] , ) Heart rate 76 /min 76 /min MEDGEN ([facility] [place] [place]) Respiratory rate 18 /min 18 /min MEDGEN ( [facility] [place] [place]) Body temperature 97.7 F 97.7 F MEDGEN ( [facility] [place] [place]) Inhaled oxygen 97 % 97 % MEDGEN ([facility]) Diastolic blood 50 mm[Hg] 50 mm[Hg] MEDGEN (S t [facility]) Systolic blood 115 mm[Hg] 115 mm[Hg] MEDGEN ([facility]) Heart rate 76 /min 76 /min MEDGEN ([facility] [place] [place]) Respiratory rate 18 /min 18 /min MEDGEN ( [facility] [place] [place]) Body temperature 97.7 F 97.7 F MEDGEN ( [facility] [place] [place]) Inhaled oxygen 97 % 97 % MEDGEN ([facility]) Diastolic blood 50 mm[Hg] 50 mm[Hg] MEDGEN (S t [facility]) Systolic blood 115 mm[Hg] 115 mm[Hg] MEDGEN ([facility]) Heart rate 75 /min 75 /min MEDGEN ([facility] [place] [place]) Respiratory rate 19 /min 19 /min MEDGEN ( [facility] [place] [place]) Body temperature 98 F 98 F MEDGEN ( [facility] [place] [place]) Inhaled oxygen 97 % 97 % MEDGEN ([facility]) Body mass index 18.5 kg/m2 18.5 kg/m2 MEDGEN (S t (BMI) [Ratio] [facility]) Diastolic blood 67 mm[Hg] 67 mm[Hg] MEDGEN (S [facility]) Systolic blood 153 mm[Hg] 153 mm[Hg] MEDGEN ([facility]) Body weight 93 lb 93 lb MEDGEN ([facility] [place] [place]) Body height 59.5 in 59.5 in MEDGEN ([facility] [place] [place]) Heart rate 75 /min 75 /min MEDGEN ([facility] [place] [place]) Respiratory rate 19 /min 19 /min MEDGEN ( [facility] [place] [place]) Body temperature 98 F 98 F MEDGEN ( [facility] [place] [place]) Inhaled oxygen 97 % 97 % MEDGEN ([facility]) Body mass index 18.5 kg/m2 18.5 kg/m2 MEDGEN (S t (BMI) [Ratio] [facility]) Diastolic blood 67 mm[Hg] 67 mm[Hg] MEDGEN (S t pressure [facility]) Systolic blood 153 mm[Hg] 153 mm[Hg] MEDGEN ([facility]) Body weight 93 lb 93 lb MEDGEN ([facility] [place] [place]) Body height 59.5 in 59.5 in MEDGEN ([facility] [place] [place]) Heart rate 75 /min 75 /min MEDGEN ([facility] [place] [place]) Respiratory rate 19 /min 19 /min MEDGEN ( [facility] [place] [place]) Body temperature 98 F 98 F MEDGEN ( [facility] [place] [place]) Inhaled oxygen 97 % 97 % MEDGEN ([facility], ) Body mass index 18.5 kg/m2 18.5 kg/m2 MEDGEN (S t (BMI) [Ratio] [facility], ) Diastolic blood 67 mm[Hg] 67 mm[Hg] MEDGEN (S t pressure [facility] [place] , ) Systolic blood 153 mm[Hg] 153 mm[Hg] MEDGEN ([facility]) Body weight 93 lb 93 lb MEDGEN ([facility] [place] [place]) Body height 59.5 in 59.5 in MEDGEN ([facility] [place] [place]) Heart rate 75 /min 75 /min MEDGEN ([facility] [place] [place]) Respiratory rate 19 /min 19 /min MEDGEN ( [facility] [place] [place]) Body temperature 98 F 98 F MEDGEN ( [facility] [place] [place]) Inhaled oxygen 97 % 97 % MEDGEN ([facility], ) Body mass index 18.5 kg/m2 18.5 kg/m2 MEDGEN (S t (BMI) [Ratio] [facility], ) Diastolic blood 67 mm[Hg] 67 mm[Hg] MEDGEN (S t pressure [facility] [place] , ) Systolic blood 153 mm[Hg] 153 mm[Hg] MEDGEN ([facility] , ) Body weight 93 lb 93 lb MEDGEN ([facility] [place] [place]) Body height 59.5 in 59.5 in MEDGEN ([facility] [place] [place]) Heart rate 75 /min 75 /min MEDGEN ([facility] [place] [place]) Respiratory rate 19 /min 19 /min MEDGEN ( [facility] [place] [place]) Body temperature 98 F 98 F MEDGEN ( [facility] [place] [place]) Inhaled oxygen 97 % 97 % MEDGEN ([facility]) Body mass index 18.5 kg/m2 18.5 kg/m2 MEDGEN (S t (BMI) [Ratio] [facility], ) Diastolic blood 67 mm[Hg] 67 mm[Hg] MEDGEN (S t pressure [facility]) Systolic blood 153 mm[Hg] 153 mm[Hg] MEDGEN ([facility]) Body weight 93 lb 93 lb MEDGEN ([facility] [place] [place]) Body height 59.5 in 59.5 in MEDGEN ([facility] [place] [place]) Heart rate 85 /min 85 /min MEDGEN ([facility] [place] [place]) Respiratory rate 14 /min 14 /min MEDGEN ( [facility] [place] [place]) Body temperature 98 F 98 F MEDGEN ( [facility] [place] [place]) Inhaled oxygen 97 % 97 % MEDGEN ([facility]) Body mass index 18.7 kg/m2 18.7 kg/m2 MEDGEN (S t (BMI) [Ratio] [facility]) Diastolic blood 72 mm[Hg] 72 mm[Hg] MEDGEN (S t pressure [facility]) Systolic blood 138 mm[Hg] 138 mm[Hg] MEDGEN ([facility]) Body weight 94 lb 94 lb MEDGEN ([facility] [place] [place]) Body height 59.5 in 59.5 in MEDGEN ([facility] [place] [place]) Heart rate 85 /min 85 /min MEDGEN ([facility] [place] [place]) Respiratory rate 14 /min 14 /min MEDGEN ( [facility] [place] [place]) Body temperature 98 F 98 F MEDGEN ( [facility] [place] [place]) Inhaled oxygen 97 % 97 % MEDGEN ([facility]) Body mass index 18.7 kg/m2 18.7 kg/m2 MEDGEN (S t (BMI) [Ratio] [facility], ) Diastolic blood 72 mm[Hg] 72 mm[Hg] MEDGEN (S t pressure [facility]) Systolic blood 138 mm[Hg] 138 mm[Hg] MEDGEN ([facility]) Body weight 94 lb 94 lb MEDGEN ([facility] [place] [place]) Body height 59.5 in 59.5 in MEDGEN ([facility] [place] [place]) Heart rate 85 /min 85 /min MEDGEN ([facility] [place] [place]) Respiratory rate 14 /min 14 /min MEDGEN ( [facility] [place] [place]) Body temperature 98 F 98 F MEDGEN ( [facility] [place] [place]) Inhaled oxygen 97 % 97 % MEDGEN ([facility]) Body mass index 18.7 kg/m2 18.7 kg/m2 MEDGEN (S t (BMI) [Ratio] [facility], ) Diastolic blood 72 mm[Hg] 72 mm[Hg] MEDGEN (S t pressure [facility]) Systolic blood 138 mm[Hg] 138 mm[Hg] MEDGEN ([facility]) Body weight 94 lb 94 lb MEDGEN ([facility] [place] [place]) Body height 59.5 in 59.5 in MEDGEN ([facility] [place] [place]) Inhaled oxygen 97 % 97 % MEDGEN ([facility]) Body mass index 18.7 kg/m2 18.7 kg/m2 MEDGEN (S t (BMI) [Ratio] [facility]) Diastolic blood 72 mm[Hg] 72 mm[Hg] MEDGEN (S t pressure [facility]) Systolic blood 138 mm[Hg] 138 mm[Hg] MEDGEN ([facility]) Body weight 94 lb 94 lb MEDGEN ([facility] [place] [place]) Body height 59.5 in 59.5 in MEDGEN ([facility] [place] [place]) Heart rate 85 /min 85 /min MEDGEN ([facility] [place] [place]) Respiratory rate 14 /min 14 /min MEDGEN ( [facility] [place] [place]) Body temperature 98 F 98 F MEDGEN ( [facility] [place] [place]) Inhaled oxygen 97 % 97 % MEDGEN ([facility]) Body mass index 18.7 kg/m2 18.7 kg/m2 MEDGEN (S t (BMI) [Ratio] [facility], ) Diastolic blood 72 mm[Hg] 72 mm[Hg] MEDGEN (S t pressure [facility]) Systolic blood 138 mm[Hg] 138 mm[Hg] MEDGEN ([facility]) Body weight 94 lb 94 lb MEDGEN ([facility] [place] [place]) Body height 59.5 in 59.5 in MEDGEN ([facility] [place] [place]) Heart rate 85 /min 85 /min MEDGEN ([facility] [place] [place]) Respiratory rate 14 /min 14 /min MEDGEN ( [facility] [place] [place]) Body temperature 98 F 98 F MEDGEN ( [facility] [place] [place]) Heart rate 85 /min 85 /min MEDGEN ([facility] [place] [place]) Respiratory rate 14 /min 14 /min MEDGEN ( [facility] [place] [place]) Body temperature 98 F 98 F MEDGEN ( [facility] [place] [place]) Inhaled oxygen 97 % 97 % MEDGEN ([facility]) Body mass index 18.7 kg/m2 18.7 kg/m2 MEDGEN (S t (BMI) [Ratio] [facility], ) Diastolic blood 72 mm[Hg] 72 mm[Hg] MEDGEN (S t [facility]) Systolic blood 138 mm[Hg] 138 mm[Hg] MEDGEN ([facility]) Body weight 94 lb 94 lb MEDGEN ([facility] [place] [place]) Body height 59.5 in 59.5 in MEDGEN ([facility] [place] [place]) Heart rate 88 /min 88 /min MEDGEN ([facility] [place] [place]) Respiratory rate 17 /min 17 /min MEDGEN ( [facility] [place] [place]) Body temperature 97.8 F 97.8 F MEDGEN ( [facility] [place] [place]) Inhaled oxygen 96 % 96 % MEDGEN ([facility]) Body mass index 18.7 kg/m2 18.7 kg/m2 MEDGEN (S t (BMI) [Ratio] [facility], ) Diastolic blood 77 mm[Hg] 77 mm[Hg] MEDGEN (S t pressure [facility]) Systolic blood 144 mm[Hg] 144 mm[Hg] MEDGEN ([facility] , ) Body weight 94 lb 94 lb MEDGEN ([facility] [place] [place]) Body height 59.5 in 59.5 in MEDGEN ([facility] [place] [place]) Heart rate 88 /min 88 /min MEDGEN ([facility] [place] [place]) Respiratory rate 17 /min 17 /min MEDGEN ( [facility] [place] [place]) Body temperature 97.8 F 97.8 F MEDGEN ( [facility] [place] [place]) Inhaled oxygen 96 % 96 % MEDGEN ([facility], ) Body mass index 18.7 kg/m2 18.7 kg/m2 MEDGEN (S t (BMI) [Ratio] [facility], ) Diastolic blood 77 mm[Hg] 77 mm[Hg] MEDGEN (S t pressure [facility]) Systolic blood 144 mm[Hg] 144 mm[Hg] MEDGEN ([facility] , ) Body weight 94 lb 94 lb MEDGEN ([facility] [place] [place]) Body height 59.5 in 59.5 in MEDGEN ([facility] [place] [place]) Heart rate 88 /min 88 /min MEDGEN ([facility] [place] [place]) Respiratory rate 17 /min 17 /min MEDGEN ( [facility] [place] [place]) Body temperature 97.8 F 97.8 F MEDGEN ( [facility] [place] [place]) Inhaled oxygen 96 % 96 % MEDGEN ([facility], ) Body mass index 18.7 kg/m2 18.7 kg/m2 MEDGEN (S t (BMI) [Ratio] [facility], ) Diastolic blood 77 mm[Hg] 77 mm[Hg] MEDGEN (S t pressure [facility]) Systolic blood 144 mm[Hg] 144 mm[Hg] MEDGEN ([facility]) Body weight 94 lb 94 lb MEDGEN ([facility] [place] [place]) Body height 59.5 in 59.5 in MEDGEN ([facility] [place] [place]) Heart rate 88 /min 88 /min MEDGEN ([facility] [place] [place]) Respiratory rate 17 /min 17 /min MEDGEN ( [facility] [place] [place]) Body temperature 97.8 F 97.8 F MEDGEN ( [facility] [place], [place]) Inhaled oxygen 96 % 96 % [facility] ([facility], ) Body mass index 18.7 kg/m2 18.7 kg/m2 [facility] (S t (BMI) [Ratio] [place] [facility] [place], ) Diastolic blood 77 mm[Hg] 77 mm[Hg] [facility] (S t pressure [facility]) Systolic blood 144 mm[Hg] 144 mm[Hg] MED[facility] ([facility] [place]) Body weight 94 lb 94 lb [facility] ([facility] [place], [place]) Body height 59.5 in 59.5 in [facility] ([facility] [place], [place]) Heart rate 88 /min 88 /min [facility] ([facility] [place], [place]) Respiratory rate 17 /min 17 /min [facility] ( [facility] [place], [place]) Body temperature 97.8 F 97.8 F MED[facility] ( [facility] [place], [place]) Inhaled oxygen 96 % 96 % [facility] ([facility], ) Body mass index 18.7 kg/m2 18.7 kg/m2 [facility] (S t (BMI) [Ratio] [facility] [place], ) Diastolic blood 77 mm[Hg] 77 mm[Hg] [facility] ([facility]) Systolic blood 144 mm[Hg] 144 mm[Hg] [facility] ([facility] [place]) Body weight 94 lb 94 lb [facility] ([facility] [place], [place]) Body height 59.5 in 59.5 in [facility] ([facility] [place], [place]) Heart rate 88 /min 88 /min [facility] ([facility] [place], [place]) Respiratory rate 17 /min 17 /min [facility] ( [facility] [place], [place]) Body temperature 97.8 F 97.8 F [facility] ( [facility] [place], [place]) Inhaled oxygen 96 % 96 % [facility] ([facility], ) Body mass index 18.7 kg/m2 18.7 kg/m2 [facility] (S t (BMI) [Ratio] [facility] [place], ) Diastolic blood 77 mm[Hg] 77 mm[Hg] [facility] ([facility]) Systolic blood 144 mm[Hg] 144 mm[Hg] [facility] ([facility] [place]) Body weight 94 lb 94 lb [facility] ([facility] [place], [place]) Body height 59.5 in 59.5 in [facility] ([facility] [place], [place]) Heart rate 88 /min 88 /min [facility] ([facility] [place], [place]) Respiratory rate 17 /min 17 /min [facility] ( [facility] [place], [place]) Body temperature 97.8 F 97.8 F [facility] ( [facility] [place], [place]) Inhaled oxygen 96 % 96 % [facility] ([facility]) Body mass index 18.7 kg/m2 18.7 kg/m2 [facility] ([facility] (BMI) [Ratio] [facility]) Diastolic blood 77 mm[Hg] 77 mm[Hg] [facility] ([facility]) Systolic blood 144 mm[Hg] 144 mm[Hg] [facility] ([facility] [place]) Body weight 94 lb 94 lb [facility] ([facility] [place], [place]) Body height 59.5 in 59.5 in [facility] ([facility] [place], [place])
--- NOTE | 2020-04-22 09:33 | PDOC ---
Documentation entered by Aki Denson SCRIBE, acting as scribe for Gaurang Claire MD. Gaurang Claire MD: This documentation has been prepared by the Jarett phillips Xhesika, SCRIBE, under my direction and personally reviewed by me in its entirety. I confirm that the documentation accurately reflects all work, treatment, procedures, and medical decision making performed by me. Attending Attestation - Resident Resident Name: ClementinaDarrion - ED Attending Attestation I have performed the following: I have examined & evaluated the patient, The case was reviewed & discussed with the resident, I agree w/resident's findings & plan, Exceptions are as noted - HPI HPI: 04/22/20 09:29 Patient is a 85y/o F with a pmh of HTN (complaint with verapamil 240mg AM, 120mg PM and 100mg losartan), IBS, HLD and anxiety who presents to the ED for elevated blood pressure. Patient states that she took her BP reading at home last night and it was 212/160's. Pt states she took her BP reading again this morning and it was 160's/110's. Pt denies any new complaints. Has been taking her BP meds as prescribed. Does endorse increased stress in her life, as she recently moved to [place] from [place] and is unhappy about the situation. The patient denies chest pain, shortness of breath, headache and dizziness. Denies fever, chills, cough, nausea, vomiting, diarrhea and constipation. Denies dysuria, frequency, urgency and hematuria. Allergies: Sulfa PCP: Dr. Fu - Physicial Exam PE: 04/22/20 09:35 "GENERAL: Awake, alert, and fully oriented, in no acute distress. HEAD: No signs of trauma EYES: PERRLA, EOMI, sclera anicteric, conjunctiva clear ENT: Auricles normal inspection, hearing grossly normal, nares patent, oropharynx clear without exudates. Moist mucosa NECK: Nontender, no stepoffs, Normal ROM, supple, no lymphadenopathy, JVD, or masses LUNGS: Breath sounds equal, clear to auscultation bilaterally. No wheezes, and no crackles HEART: Regular rate and rhythm, normal S1 and S2, no murmurs, rubs or gallops ABDOMEN: Soft, nontender, normoactive bowel sounds. No guarding, no rebound. No masses EXTREMITIES: Normal range of motion, no edema. No clubbing or cyanosis. No co rds, erythema, or tenderness NEUROLOGICAL: Cranial nerves II through XII intact. 5/5 strength and sensation in all extremities, Normal speech, normal gait, normal cerebellar function SKIN: Warm, Dry, normal turgor, no rashes or lesions noted. - Medical Decision Making 04/22/20 09:35 85 F with asymptomatic HTN. BP improving without intervention. - f/u cardiology, pt has appt on Wednesday Pt is well appearing, with normal vitals. Clinically stable for DC at this time. I discussed the physical exam findings, ancillary test results and final diagnoses with the patient. I answered all of the patient's questions. The patient was satisfied with the care received and felt comfortable with the discharge plan and treatment plan. The patient agrees to follow up with the [facility] physician within 24-72 hours. Discharge - Discharge Information Problems reviewed: Yes Clinical Impression/Diagnosis: Anxiety, Stressful life event affecting family HTN (hypertension) Qualifiers: Hypertension type: unspecified Qualified Code(s): I10 - Essential (primary) hypertension Condition: Good Disposition: HOME - Follow up/Referral Referrals: Ronn Fu MD [Primary Care Provider] - - Patient Discharge Instructions Patient Printed Discharge Instructions: DI for High Blood Pressure, How to Monitor Your Blood Pressure at Home Additional Instructions: You were seen in the emergency department for elevated blood pressure. This can be caused by not taking medication or high salt diet. As such you were monitored for hypertension. You were not given any medications in the emergency department. Please follow up with your primary care physician regarding your visit to the emergency department. If you experience profound headache, blurry/double vision, chest pain, shortness of breath, abdominal pain please return to the emergency department or call 911. - Post Discharge Activity
== END 2020-04-22 09:44 | disposition home or self-care (01) ==
LOC: JER 08:09
DX: I10 Essential (primary) hypertension (principal)
CPT/HCPCS: 99283-25

== ENCOUNTER 2023-04-04 11:20 | Emergency (ER) | payer OTHER, BC ==
[2023-04-04 11:27] VITALS: BMI 16.9
[2023-04-04] MEDS ORDERED: ACETAMINOPHEN 1000 MG/100 ML BAG IVPB ONE (12:06)
[2023-04-04] MEDS ORDERED: ACETAMINOPHEN INJECTION 100 ML IVPB ONE (12:23)
[2023-04-04 12:48] LABS: BASO % 0.9 % (0-2.0); EOS % 0.5 % (0-4.5); HEMATOCRIT 37.4 % (32.4-45.2); HEMOGLOBIN 12.3 GM/dL (10.7-15.3); LYMPH % 11.3 % (8-40); MCH 29.4 pg (25.7-33.7); MCHC 32.9 g/dl (32.0-36.0); MEAN CELL VOLUME 89.3 fl (80-96); MEAN PLT VOLUME 7.7 fl (7.5-11.1); NEUT % 80.3 % (42.8-82.8); PLATELET COUNT 216 10^3/uL (134-434); RBC 4.18 M/mm3 (3.60-5.2); RDW 12.5 % (11.6-15.6)
[2023-04-04 13:07] LABS: POTASSIUM 3.9 mmol/L (3.5-5.1)
[2023-04-04 13:09] LABS: ALBUMIN 4.1 g/dl (3.4-5.0); CALCIUM 9.5 mg/dL (8.5-10.1)
[2023-04-04 13:10] LABS: BLOOD UREA NITROGEN 13.3 mg/dL (7-18); MAGNESIUM 2.3 mg/dL (1.8-2.4)
[2023-04-04 13:12] LABS: CREATININE 0.7 mg/dL (0.55-1.3)
[2023-04-04 13:14] LABS: BILIRUBIN,TOTAL 0.4 mg/dL (0.2-1); TOT PROT 7.6 g/dl (6.4-8.2)
[2023-04-04 16:39] VITALS: BP 153/85; PULSE 88; RESP 20; TEMP 98
== END 2023-04-04 17:11 | disposition home or self-care (01) ==
LOC: JER 11:20
PROC: 3E033NZ Introduction of Analgesics, Hypnotics, Sedatives into Peripheral Vein, Percutaneous Approach (ICD-10-PCS; principal; 2023-04-04)
DX: R10.30 Lower abdominal pain, unspecified (principal); R11.0 Nausea; R19.7 Diarrhea, unspecified
CPT/HCPCS: 36415; 71045-TC-FY; 80053; 83690; 83735; 84484; 85025; 93005; 93010; 99285-25

== ENCOUNTER 2023-06-04 10:21 | Emergency (ER) | payer OTHER, BC ==
[2023-06-04 10:30] VITALS: BP 135/75; PULSE 85; RESP 16; TEMP 98.1; BMI 22.2
== END 2023-06-04 12:13 | disposition home or self-care (01) ==
LOC: FER 10:21
DX: S09.90XA Unspecified injury of head, initial encounter (principal); M54.2 Cervicalgia; M54.9 Dorsalgia, unspecified; W01.198A Fall on same level from slipping, tripping and stumbling with subsequent striking against other object, initial encounter; Y93.01 Activity, walking, marching and hiking
CPT/HCPCS: 70450-TC; 99284-25